=== PATIENT | female | born 1945 | race Caucasian/White ===

== ENCOUNTER → 2023-09-21 11:29 | Outpatient (REF) | payer MEDICARE, OTHER, SELFPAY ==
[2023-09-21 11:37] LABS: % Basophils 0.4 % (0-2); % Immature Granulocytes 0.9 % (0-0.5); % Lymphocytes 6.8 % (20.5-51.1); % Monocytes 12.5 % (1.7-9.3); % Neutrophils 78.4 % (42.2-75.2); Absolute Eosinophils 0.1 10^3/uL (0-0.7); Absolute Immature Granulocytes 0.1 10^3/uL (0-0.05); Absolute Lymphocytes 0.8 10^3/uL (1.2-3.4); Absolute Monocytes 1.4 10^3/uL (0.1-0.6); Absolute Neutrophils 8.9 10^3/uL (1.4-6.5); Mean Corp Hgb Conc. 34.8 g/dL (33.0-37.0); Mean Corpuscular Hgb 34.8 pg (27.0-31.0); Mean Platelet Volume 9.3 fL (7.4-10.4); Nucleated Red Blood Cells % 0 %; Platelet Count 113 10^3/uL (130-400); Red Cell Dist. Width 15.7 % (11.5-14.5); White Blood Cell Count 11.3 10^3/uL (4.8-10.8)
[2023-09-21 11:48] LABS: ALT (SGPT) 24 U/L (0-35); AST (SGOT) 30 U/L (14-36); Albumin 3.7 g/dl (3.5-5.0); Alkaline Phosphatase 169 U/L (38-126); Blood Urea Nitrogen 17 mg/dl (7-17); Calcium 8.6 mg/dl (8.4-10.2); Carbon Dioxide 25 mmol/L (22-30); Chloride 107 mmol/L (98-107); Glucose 104 mg/dl (70-99); Potassium 4.5 mmol/L (3.5-5.1); Sodium 136 mmol/L (135-145); Total Bilirubin 0.7 mg/dl (0.2-1.3); eGFR > 60.00
[2023-09-21 18:33] LABS: CA 125 52.4 U/mL (0-35)
== END ==
LOC: OIDL 11:29
PROVIDERS: ATTENDING PHYSICIAN Nurse Practitioner Adult Health
DX: C48.2 Malignant neoplasm of peritoneum, unspecified (principal)
CPT/HCPCS: 80053; 85025; 86304

== ENCOUNTER → 2023-09-28 15:21 | Outpatient (REF) | payer MEDICARE, OTHER, SELFPAY ==
[2023-09-28 11:32] LABS: ALT (SGPT) 19 U/L (0-35); AST (SGOT) 25 U/L (14-36); Albumin 3.9 g/dl (3.5-5.0); Alkaline Phosphatase 144 U/L (38-126); Blood Urea Nitrogen 19 mg/dl (7-17); Calcium 8.7 mg/dl (8.4-10.2); Carbon Dioxide 22 mmol/L (22-30); Chloride 109 mmol/L (98-107); Glucose 144 mg/dl (70-99); Potassium 4.9 mmol/L (3.5-5.1); Sodium 135 mmol/L (135-145); Total Bilirubin 0.8 mg/dl (0.2-1.3); Total Protein 6.3 g/dl (6.3-8.2); eGFR > 60.00
[2023-09-28 11:35] LABS: % Basophils 0.3 % (0-2); % Eosinophils 0.6 % (0-6); % Immature Granulocytes 0.4 % (0-0.5); % Lymphocytes 17.7 % (20.5-51.1); % Monocytes 10.9 % (1.7-9.3); % Neutrophils 70.1 % (42.2-75.2); Absolute Lymphocytes 1.2 10^3/uL (1.2-3.4); Absolute Monocytes 0.7 10^3/uL (0.1-0.6); Absolute Neutrophils 4.7 10^3/uL (1.4-6.5); Hematocrit 22.5 % (37.0-47.0); Hemoglobin 8.1 g/dL (12.0-16.0); Mean Corpuscular Hgb 35.7 pg (27.0-31.0); Mean Corpuscular Volume 99.1 fL (81.0-99.0); Mean Platelet Volume 9.4 fL (7.4-10.4); Nucleated Red Blood Cells % 0 %; Platelet Count 140 10^3/uL (130-400); Red Blood Cell Count 2.27 10^6/uL (4.20-5.40); Red Cell Dist. Width 15.5 % (11.5-14.5); White Blood Cell Count 6.7 10^3/uL (4.8-10.8)
== END ==
LOC: OIDL 15:21
PROVIDERS: ATTENDING PHYSICIAN Internal Medicine Hematology & Oncology
DX: C48.2 Malignant neoplasm of peritoneum, unspecified (principal)
CPT/HCPCS: 80053; 85025

== ENCOUNTER → 2023-10-05 14:17 | Outpatient (REF) | payer MEDICARE, OTHER, SELFPAY ==
[2023-10-05 13:25] LABS: % Eosinophils 0.1 % (0-6); % Immature Granulocytes 4.6 % (0-0.5); % Lymphocytes 5.6 % (20.5-51.1); % Monocytes 7.5 % (1.7-9.3); % Neutrophils 82.2 % (42.2-75.2); Absolute Immature Granulocytes 1.1 10^3/uL (0-0.05); Absolute Lymphocytes 1.4 10^3/uL (1.2-3.4); Absolute Monocytes 1.8 10^3/uL (0.1-0.6); Hematocrit 21.5 % (37.0-47.0); Hemoglobin 7.4 g/dL (12.0-16.0); Mean Corp Hgb Conc. 34.4 g/dL (33.0-37.0); Mean Corpuscular Hgb 35.2 pg (27.0-31.0); Mean Corpuscular Volume 102.4 fL (81.0-99.0); Nucleated Red Blood Cells % 0 %; Red Cell Dist. Width 15.5 % (11.5-14.5); White Blood Cell Count 24.3 10^3/uL (4.8-10.8)
[2023-10-05 13:41] LABS: ALT (SGPT) 16 U/L (0-35); AST (SGOT) 27 U/L (14-36); Albumin 3.8 g/dl (3.5-5.0); Alkaline Phosphatase 240 U/L (38-126); Blood Urea Nitrogen 24 mg/dl (7-17); Calcium 8.5 mg/dl (8.4-10.2); Carbon Dioxide 21 mmol/L (22-30); Chloride 112 mmol/L (98-107); Glucose 83 mg/dl (70-99); Sodium 138 mmol/L (135-145); Total Bilirubin 0.7 mg/dl (0.2-1.3); Total Protein 6.1 g/dl (6.3-8.2); eGFR > 60.00
[2023-10-05 14:27] LABS: Mean Platelet Volume 10.2 fL (7.4-10.4); Platelet Count 78 10^3/uL (130-400)
[2023-10-05 14:41] LABS: Protein/creatinine Ratio 1.2; Urine Protein 81 mg/dl
== END ==
LOC: OIDL 14:17
PROVIDERS: ATTENDING PHYSICIAN Internal Medicine Hematology & Oncology
DX: C48.2 Malignant neoplasm of peritoneum, unspecified (principal)
CPT/HCPCS: 80053; 82570; 84156; 85025

== ENCOUNTER 2023-10-07 09:48 | Outpatient (RCR) | payer MEDICARE, OTHER, SELFPAY ==
[2023-10-07 10:23] VITALS: BP 142/57
[2023-10-07 10:45] VITALS: BP 129/60
[2023-10-07 12:31] VITALS: BP 139/66
[2023-10-07 12:50] VITALS: BP 152/69
[2023-10-07 15:05] VITALS: BP 138/67
== END 2023-10-08 23:59 | disposition home or self-care (01) ==
LOC: OID 09:48
PROVIDERS: ATTENDING PHYSICIAN Internal Medicine Hematology & Oncology; FAMILY PHYSICIAN Family Medicine
DX: C48.2 Malignant neoplasm of peritoneum, unspecified (principal)
CPT/HCPCS: 36430; 86850; 86900; 86901; 86920; P9016

== ENCOUNTER → 2023-10-19 12:48 | Outpatient (REF) | payer MEDICARE, OTHER, SELFPAY ==
[2023-10-19 13:16] LABS: % Basophils 0.6 % (0-2); % Eosinophils 1.1 % (0-6); % Immature Granulocytes 1.4 % (0-0.5); % Lymphocytes 9.9 % (20.5-51.1); % Monocytes 12.6 % (1.7-9.3); % Neutrophils 74.4 % (42.2-75.2); Absolute Basophils 0.1 10^3/uL (0-0.2); Absolute Eosinophils 0.1 10^3/uL (0-0.7); Absolute Immature Granulocytes 0.2 10^3/uL (0-0.05); Absolute Lymphocytes 1.2 10^3/uL (1.2-3.4); Absolute Monocytes 1.6 10^3/uL (0.1-0.6); Absolute Neutrophils 9.2 10^3/uL (1.4-6.5); Hematocrit 28.3 % (37.0-47.0); Mean Corp Hgb Conc. 35.3 g/dL (33.0-37.0); Mean Corpuscular Hgb 33.2 pg (27.0-31.0); Mean Platelet Volume 8.9 fL (7.4-10.4); Nucleated Red Blood Cells % 0 %; Platelet Count 91 10^3/uL (130-400); Red Blood Cell Count 3.01 10^6/uL (4.20-5.40); White Blood Cell Count 12.4 10^3/uL (4.8-10.8)
[2023-10-19 13:24] LABS: ALT (SGPT) 24 U/L (0-35); AST (SGOT) 29 U/L (14-36); Alkaline Phosphatase 179 U/L (38-126); Blood Urea Nitrogen 22 mg/dl (7-17); Calcium 8.9 mg/dl (8.4-10.2); Carbon Dioxide 24 mmol/L (22-30); Chloride 111 mmol/L (98-107); Glucose 90 mg/dl (70-99); Potassium 4.7 mmol/L (3.5-5.1); Sodium 139 mmol/L (135-145); Total Bilirubin 0.8 mg/dl (0.2-1.3); Total Protein 6.4 g/dl (6.3-8.2); eGFR > 60.00
== END ==
LOC: OIDL 12:48
PROVIDERS: ATTENDING PHYSICIAN Internal Medicine Hematology & Oncology
DX: C48.2 Malignant neoplasm of peritoneum, unspecified (principal)
CPT/HCPCS: 80053; 85025

== ENCOUNTER → 2023-10-20 14:15 | Outpatient (REF) | payer MEDICARE, OTHER, SELFPAY ==
[2023-10-20 16:08] LABS: Protein/creatinine Ratio 2.4; Urine Protein 239 mg/dl
== END ==
LOC: OIDL 14:15
PROVIDERS: ATTENDING PHYSICIAN Internal Medicine Hematology & Oncology
DX: C48.2 Malignant neoplasm of peritoneum, unspecified (principal)
CPT/HCPCS: 82570; 84156

== ENCOUNTER → 2023-10-30 12:41 | Outpatient (REF) | payer MEDICARE, OTHER, SELFPAY | LOC: RAD 12:41 | PROVIDERS: ATTENDING PHYSICIAN Internal Medicine Hematology & Oncology; FAMILY PHYSICIAN Family Medicine | DX: C48.2 Malignant neoplasm of peritoneum, unspecified (principal) | CPT/HCPCS: 71260; 74177; Q9967 ==

== ENCOUNTER → 2023-11-13 09:08 | Outpatient (REF) | payer MEDICARE, OTHER, SELFPAY | LOC: RCS 09:08 | PROVIDERS: ATTENDING PHYSICIAN Nurse Practitioner Adult Health; FAMILY PHYSICIAN Family Medicine | DX: C48.2 Malignant neoplasm of peritoneum, unspecified (principal) | CPT/HCPCS: 93306 ==

== ENCOUNTER → 2023-11-16 09:22 | Outpatient (REF) | payer MEDICARE, OTHER, SELFPAY ==
[2023-11-16 09:39] LABS: % Basophils 0.6 % (0-2); % Eosinophils 1.9 % (0-6); % Immature Granulocytes 0.4 % (0-0.5); % Monocytes 8.5 % (1.7-9.3); % Neutrophils 73.6 % (42.2-75.2); Absolute Eosinophils 0.1 10^3/uL (0-0.7); Absolute Lymphocytes 0.8 10^3/uL (1.2-3.4); Absolute Monocytes 0.4 10^3/uL (0.1-0.6); Absolute Neutrophils 3.8 10^3/uL (1.4-6.5); Hematocrit 23.2 % (37.0-47.0); Hemoglobin 7.9 g/dL (12.0-16.0); Mean Corp Hgb Conc. 34.1 g/dL (33.0-37.0); Mean Corpuscular Hgb 33.8 pg (27.0-31.0); Mean Corpuscular Volume 99.1 fL (81.0-99.0); Mean Platelet Volume 9.7 fL (7.4-10.4); Nucleated Red Blood Cells % 0 %; Platelet Count 117 10^3/uL (130-400); Red Blood Cell Count 2.34 10^6/uL (4.20-5.40); Red Cell Dist. Width 15.9 % (11.5-14.5); White Blood Cell Count 5.2 10^3/uL (4.8-10.8)
[2023-11-16 09:56] LABS: ALT (SGPT) 27 U/L (0-35); AST (SGOT) 31 U/L (14-36); Albumin 3.8 g/dl (3.5-5.0); Alkaline Phosphatase 112 U/L (38-126); Blood Urea Nitrogen 27 mg/dl (7-17); Calcium 8.7 mg/dl (8.4-10.2); Carbon Dioxide 19 mmol/L (22-30); Chloride 113 mmol/L (98-107); Glucose 124 mg/dl (70-99); Potassium 5.1 mmol/L (3.5-5.1); Sodium 137 mmol/L (135-145); Total Bilirubin 0.7 mg/dl (0.2-1.3); Total Protein 6.1 g/dl (6.3-8.2); eGFR 42.35
[2023-11-16 18:44] LABS: CA 125 71.4 U/mL (0-35)
== END ==
LOC: OIDL 09:22
PROVIDERS: ATTENDING PHYSICIAN Internal Medicine Hematology & Oncology
DX: C48.2 Malignant neoplasm of peritoneum, unspecified (principal)
CPT/HCPCS: 80053; 85025; 86304

== ENCOUNTER 2023-11-20 07:15 | Inpatient (IN) | payer MEDICARE, OTHER, SELFPAY ==
[2023-11-20] VITALS (13 sets, daily range): BP systolic 135–155; BP diastolic 56–70; BMI 20.9
--- NOTE | 2023-11-20 09:44 | ITS.CL.PN ---
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
Procedure
Procedure Note:
PERICARDIOCENTESIS REPORT
Date of Procedure: 11/20/2023
Referring: Adrian Blevins MD, PhD
Indication: History of cancer with moderate to large pericardial effusion and exertional dyspnea
PROCEDURE SUMMARY: Successful pericardiocentesis with removal of 450 mL of clear yellow fluid
DESCRIPTION OF PROCEDURE: Using a subxiphoid approach, the pericardial space was entered on the first attempt with a micropuncture needle. A 6 [place]ic sheath was placed in the pericardial space. A pigtail catheter was advanced into the pericardial
space and agitated saline injected to prove proper position of the catheter. Initial intrapericardial pressure was measured at 17 mmHg. A total of 450 mL of clear yellow fluid was removed from the pericardial space. Fluid was sent for cell count,
culture, and the other usual suspects with the bulk of the fluid sent for cytology. A drain was left in place to suction. Final echocardiogram demonstrated trivial residual effusion. The final intrapericardial pressure remained elevated at 10 mmHg
Radiation (mGy): 0.58
DAP (cm2.Gy): 0.07
Fluoroscopy time: 0.1 minutes
CONCLUSIONS: Successful pericardiocentesis as above. We will leave the drain in place for the next 24-72 hours depending upon the drainage. Fluid was sent for analysis. We will treat with colchicine 0.6 mg twice daily if tolerated for 3 months
and a tapering course of ibuprofen (600 twice daily x 3 days, 400 twice daily x 3 days, 200 twice daily x 3 days, 200 daily x 3 days). Continue PPI while on ibuprofen. If cytology is positive would stop the anti-inlammatory regimen. Would repeat
ECHO in 2-4 wks
Copy to: Adrian Blevins MD, PhD, María Elena Mark DO, Ron Rich DO
Alexi Cadet MD, [facility], [facility]
[2023-11-20 10:08] LABS: Body Fluid Glucose 111 mg/dl; Body Fluid LDH 212 U/L
[2023-11-20] MEDS: COLCHICINE 0.599999999999999978 MG PO ×2 (10:19→20:22)
[2023-11-20] MEDS: MOTRIN 600 MG PO ×2 (10:19→17:29)
--- NOTE | 2023-11-20 10:21 | PTCARENOTE ---
Patient verbalizes c/o pain 5/10-left chest wall, radiating to left scapula and down left arm. Linda, HAND MITER OPERATOR aware via TT. Orders placed for a stat dose of ibuprofen and colchicine. Given to patient as ordered.
--- NOTE | 2023-11-20 11:49 | CM ---
spoke to pt in room, she is prev indep, lives alone in a 1 story home with 2 steps to enter. she denies dme's. we discussed vn services and she is agreeable to nv. referral faxed. plan is for dc to home when medically stable.
[2023-11-20 12:18] LABS: Body Fluid WBC 363 /CUMM
[2023-11-20 12:19] LABS: Body Fluid Hematocrit < 1.0 %
[2023-11-20 12:21] LABS: Body Fluid Granulocytes 10 %; Body Fluid Lymphocytes 9 %; Body Fluid Macrophages 56 %
[2023-11-20 12:22] LABS: Body Fluid Mesothelials 25 %
[2023-11-20 12:35] LABS: Body Fluid Second Tech EM
[2023-11-20] MEDS: LOVENOX 30 MG SC (17:29)
--- NOTE | 2023-11-20 19:28 | PTCARENOTE ---
Pt received from recovery area post pericardiocentesis. Pericardial drain in place, 150mls serosanguineous fluid in bulb. Sub xiphoid dressing dry and intact. Pt c/o pain in her left arm and across her upper abdominal area, improved after ibuprofen
and position change. Pt OOB with assistance, walking in halls @50 feet. Telemetry shows sinus rhythm .
[2023-11-20] MEDS: COREG 12.5 MG PO (20:22)
[2023-11-20] MEDS: SINGULAIR 10 MG PO (20:22)
[2023-11-20] MEDS: LIPITOR 20 MG PO (20:22)
[2023-11-20] MEDS: TYLENOL 650 MG PO (20:22)
--- NOTE | 2023-11-20 23:56 | PTCARENOTE ---
Pt sub xiphoid drain and dressing CDI- Pain described as a 3-5/10 from her L neck down her arm- states this has been present since after the drain placement- Pain medications provided as scheduled and PRN medications provided. Warm towel applied to
L neck and pt seated more upright- reports relief and has been able to sleep. VSS. SR on the monitor.
[2023-11-21 03:18] VITALS: BP 133/63
[2023-11-21] MEDS: TYLENOL 650 MG PO (03:36)
[2023-11-21 03:46] LABS: Hematocrit 21.6 % (37.0-47.0); Hemoglobin 7.6 g/dL (12.0-16.0); Mean Corp Hgb Conc. 35.2 g/dL (33.0-37.0); Mean Corpuscular Hgb 33.5 pg (27.0-31.0); Mean Corpuscular Volume 95.2 fL (81.0-99.0); Mean Platelet Volume 9.2 fL (7.4-10.4); Platelet Count 96 10^3/uL (130-400); Red Blood Cell Count 2.27 10^6/uL (4.20-5.40); Red Cell Dist. Width 15.1 % (11.5-14.5); White Blood Cell Count 5.4 10^3/uL (4.8-10.8)
[2023-11-21 05:00] LABS: Blood Urea Nitrogen 27 mg/dl (7-17); Calcium 8.5 mg/dl (8.4-10.2); Carbon Dioxide 21 mmol/L (22-30); Chloride 113 mmol/L (98-107); Estimated Creatinine Clearance 28 ml/min; Glucose 100 mg/dl (70-99); Magnesium 2.3 mg/dl (1.6-2.3); Potassium 4.8 mmol/L (3.5-5.1); Sodium 138 mmol/L (135-145); eGFR 42.35
[2023-11-21 07:43] VITALS: BP 145/66
[2023-11-21] MEDS: PROTONIX 20 MG PO (09:18)
[2023-11-21] MEDS: DIOVAN 160 MG PO (09:18)
[2023-11-21] MEDS: COREG 12.5 MG PO ×2 (09:19→20:18)
[2023-11-21] MEDS: COLCHICINE 0.599999999999999978 MG PO ×2 (09:19→20:17)
[2023-11-21] MEDS: MOTRIN 600 MG PO ×2 (09:19→20:17)
--- NOTE | 2023-11-21 09:51 | W.PN.CD ---
Today's Communication / Plan
-
- leave drain in
- monitor Hb and creatinine
Impression / Plan
-
Impression: 77F with PMH of recurrent ovarian cancer s/p carboplatin/doxorubicin with bevacizumab (anti-VEFG), prior colon mets s/p ostomy 2022, now with liver mets, HTN, hyperlipidemia presents for elective/urgent pericardiocentesis.
Plan
Symptomatic pericardial effusion
- about 160 ml over past 24 hours -> will leave in an evaluate in AM
- colchicine and NSAID
- studies pending
- we discussed pericardial effusions, pericardiocentesis, and pericardial windows.
Recurrent ovarian cancer - has appt with Dr. Rich on Thursday
Creatinine 1.3
- monitor with NSAID use
- may need to change valsartan
Anemia - stable from last week
Prior colon mets s/p ostomy 2022
HTN
Subjective: mild back and shoulder pain, no dyspnea
Pericardiocentesis Nov 12: Initial intrapericardial pressure was measured at 17 mmHg. A total of 450 mL of clear yellow fluid was removed from the pericardial space. Fluid was sent for cell count, culture, and the other usual suspects with the
bulk of the fluid sent for cytology. A drain was left in place to suction. Final echocardiogram demonstrated trivial residual effusion. The final intrapericardial pressure remained elevated at 10 mmHg
Laboratory Data
11/16/23 11/21/23
08:30 03:24
Hgb 7.9 L 7.6 L
Creatinine 1.3 H 1.3 H
Generic Name Dose Route Start Last Admin
Trade Name Freq PRN Reason Stop Dose Admin
Valsartan 160 mg 11/21/23 08:00 11/21/23 09:18
Valsartan 80 Mg Tablet PO 12/19/23 07:59 160 mg
DAILY JORDAN
Atorvastatin Calcium 20 mg 11/20/23 22:00 11/20/23 20:22
Atorvastatin (Lipitor) 20 Mg Tablet PO 12/18/23 21:59 20 mg
HS JORDAN
Colchicine 0.6 mg 11/20/23 20:00 11/21/23 09:19
Colchicine 0.6 Mg Tablet PO 12/18/23 19:59 0.6 mg
BID JORDAN
Ibuprofen 600 mg 11/20/23 20:00 11/21/23 09:19
Ibuprofen 600 Mg Tablet PO 11/23/23 19:59 600 mg
BID JORDAN
Physical Exam
Vital Signs/Labs
Vital Signs
Temp Pulse Resp BP Pulse Ox
36.6 C 67 14 145/66 96
11/21/23 07:43 11/21/23 09:18 11/21/23 07:43 11/21/23 09:18 11/21/23 07:43
11/20/23 11/21/23 11/22/23
06:59 06:59 06:59
Actual Weight 112 lb 3.445 oz
11/21/23 03:24
11/21/23 03:24
Magnesium 2.3 mg/dl (1.6-2.3) 11/21/23 03:24
Physical Exam
Constitutional: No acute distress
EENT: Anicteric
Cardiovascular: Rhythm & rate is regular, Pedal edema is absent, Systolic murmur absent and Diastolic murmur absent
Respiratory: Respiratory effort normal
GI: Soft, Distention absent, Non tender and Normal bowel sounds
Neuro/Psych: Alert
Data Reviewed
-
Date of Service: November 21, 2023
[2023-11-21 11:11] VITALS: BP 146/51
[2023-11-21 16:31] VITALS: BP 147/62
[2023-11-21] MEDS: LOVENOX 30 MG SC (17:52)
[2023-11-21 19:39] VITALS: BP 152/65
[2023-11-21 22:35] VITALS: BP 115/52
[2023-11-21] MEDS: SINGULAIR 10 MG PO (22:42)
[2023-11-21] MEDS: LIPITOR 20 MG PO (22:42)
--- NOTE | 2023-11-22 02:50 | PTCARENOTE ---
Pt rec'd at change of shift upset about her ostomy leaking. Cleaned, redressed not changed but enforced around edges. Pt denies discomfort at pericardial drain site. Sinus on telemetry.
[2023-11-22 03:09] VITALS: BP 143/57
[2023-11-22] MEDS: TYLENOL 650 MG PO (03:11)
[2023-11-22 03:30] LABS: Hematocrit 21.3 % (37.0-47.0); Hemoglobin 7.6 g/dL (12.0-16.0); Mean Corp Hgb Conc. 35.7 g/dL (33.0-37.0); Mean Corpuscular Hgb 33.6 pg (27.0-31.0); Mean Corpuscular Volume 94.2 fL (81.0-99.0); Mean Platelet Volume 9.4 fL (7.4-10.4); Platelet Count 101 10^3/uL (130-400); Red Blood Cell Count 2.26 10^6/uL (4.20-5.40); Red Cell Dist. Width 15.2 % (11.5-14.5); White Blood Cell Count 5.4 10^3/uL (4.8-10.8)
[2023-11-22 03:57] LABS: Blood Urea Nitrogen 28 mg/dl (7-17); Calcium 8.5 mg/dl (8.4-10.2); Carbon Dioxide 18 mmol/L (22-30); Chloride 113 mmol/L (98-107); Estimated Creatinine Clearance 30 ml/min; Glucose 115 mg/dl (70-99); Potassium 4.5 mmol/L (3.5-5.1); Sodium 136 mmol/L (135-145); eGFR 46.62
[2023-11-22 07:35] VITALS: BP 149/60
--- NOTE | 2023-11-22 08:11 | W.PN.CD ---
Today's Communication / Plan
-
- drainage trailed of and Dr. Cadet pulled drain
- colchicine (lower to once daily given GFR) and NSAID
- studies pending
- D/c home
- Echo in 2 weeks
- BMP in one week
Impression / Plan
-
Impression: 77F with PMH of recurrent ovarian cancer s/p carboplatin/doxorubicin with bevacizumab (anti-VEFG), prior colon mets s/p ostomy 2022, now with liver mets, HTN, hyperlipidemia presents for elective/urgent pericardiocentesis.
Plan
Symptomatic pericardial effusion
- drainage trailed of and Dr. Cadet pulled drain
- colchicine (lower to once daily given GFR) and NSAID
- studies pending
Recurrent ovarian cancer - has appt with Dr. Rich on Thursday
Creatinine 1.2
- monitor with NSAID use
- may need to change valsartan
Anemia - stable from last week
Prior colon mets s/p ostomy 2022
HTN
Dispo
- D/c home
- Echo in 2 weeks
- BMP in one week
Subjective: No CP or palps
Pericardiocentesis Apr 12: Initial intrapericardial pressure was measured at 17 mmHg. A total of 450 mL of clear yellow fluid was removed from the pericardial space. Fluid was sent for cell count, culture, and the other usual suspects with the
bulk of the fluid sent for cytology. A drain was left in place to suction. Final echocardiogram demonstrated trivial residual effusion. The final intrapericardial pressure remained elevated at 10 mmHg
Laboratory Data
11/16/23 11/21/23
08:30 03:24
Hgb 7.9 L 7.6 L
Creatinine 1.3 H 1.3 H
Generic Name Dose Route Start Last Admin
Trade Name Freq PRN Reason Stop Dose Admin
Valsartan 160 mg 11/21/23 08:00 11/21/23 09:18
Valsartan 80 Mg Tablet PO 12/19/23 07:59 160 mg
DAILY JORDAN
Atorvastatin Calcium 20 mg 11/20/23 22:00 11/20/23 20:22
Atorvastatin (Lipitor) 20 Mg Tablet PO 12/18/23 21:59 20 mg
HS JORDAN
Colchicine 0.6 mg 11/20/23 20:00 11/21/23 09:19
Colchicine 0.6 Mg Tablet PO 12/18/23 19:59 0.6 mg
BID JORDAN
Ibuprofen 600 mg 11/20/23 20:00 11/21/23 09:19
Ibuprofen 600 Mg Tablet PO 11/23/23 19:59 600 mg
BID JORDAN
Physical Exam
Vital Signs/Labs
Vital Signs
Temp Pulse Resp BP Pulse Ox
36.5 C 52 20 143/57 98
11/22/23 07:31 11/22/23 05:00 11/22/23 07:31 11/22/23 03:09 11/22/23 07:31
11/21/23 11/22/23 11/23/23
06:59 06:59 06:59
Actual Weight 112 lb 3.445 oz
11/22/23 03:19
11/22/23 03:19
Magnesium 2.3 mg/dl (1.6-2.3) 11/21/23 03:24
Physical Exam
Constitutional: No acute distress
EENT: Anicteric and Moist mucous membranes
Cardiovascular: Rhythm & rate is regular, Systolic murmur absent and Diastolic murmur absent
Respiratory: Respiratory effort normal
GI: Soft, Distention absent, Non tender and Normal bowel sounds
Neuro/Psych: Alert and Oriented
Data Reviewed
-
Date of Service: November 22, 2023
[2023-11-22] MEDS: DIOVAN 160 MG PO (08:28)
[2023-11-22] MEDS: PROTONIX 20 MG PO (08:28)
[2023-11-22] MEDS: COREG 12.5 MG PO (08:29)
[2023-11-22] MEDS: MOTRIN 600 MG PO (08:29)
[2023-11-22] MEDS: COLCHICINE 0.599999999999999978 MG PO (08:29)
--- NOTE | 2023-11-22 08:30 | W.DS.TRANS ---
DC Summary - Cath Lab Nurse
-
Discharge Instructions:
Discharge Diagnosis/Procedures Pericardial effusion post pericardiocentesis
Diet Low Cholesterol
Activity No restrictions
Driving Restrictions As prior to admission
Bathing Restrictions None
Blood Work BMP one week (office will arrange)
Instructions:
Stand-Alone Forms: DC Instructions- Cath/EP Lab
Changes to Home Medications: Yes
Discharge Medications:
DC Medications w/original date entered in [employer]
montelukast 10 mg tablet 10 mg PO HS Allergies 05/20/17
simvastatin 40 mg tablet 40 mg PO HS High Cholesterol 05/20/17
famotidine 20 mg tablet (Pepcid) 20 mg PO DAILY Gastrointestinal Issue 03/13/23
valsartan 80 mg capsule 160 mg PO DAILY Heart Disease/Condition 10/07/23
carvedilol 12.5 mg tablet 12.5 mg PO BID Heart Disease/Condition 11/20/23
loratadine 10 mg tablet 10 mg PO DAILY Allergies 11/20/23
pantoprazole 20 mg tablet,delayed release 20 mg PO DAILY Gastrointestinal Issue 11/20/23
colchicine 0.6 mg tablet 0.6 mg PO DAILY #30 tabs 11/22/23
ibuprofen 400 mg tablet 400 mg PO BID 14 days #28 tabs 11/22/23
Home Medication Changes
colchicine 0.6 mg tablet 0.6 mg PO DAILY #30 tabs 11/22/23 is NEW
ibuprofen 400 mg tablet 400 mg PO BID 14 days #28 tabs 11/22/23 is NEW
Pending Results: No
[2023-11-22 09:35] VITALS: BP 76/39
--- NOTE | 2023-11-22 09:37 | PTCARENOTE ---
Pt getting ready for d/c and felt very weak. BP 76/39, HR 54. Pt assisted back to bed to rest. Will monitor.
[2023-11-22 09:45] VITALS: BP 116/49
--- NOTE | 2023-11-22 10:53 | PTCARENOTE ---
BP 116/49, HR 62. Pt feeling much better. Pt clarified her coreg dose as 6.25 mg BID. Med rec amended. Pt d/c'd via wheelchair.
== END 2023-11-22 13:06 | disposition home health service (06) | DRG 315 ==
LOC: IVU 07:15
PROVIDERS: Internal Medicine; Nurse Practitioner Adult Health; ADMITTING PHYSICIAN Internal Medicine Cardiovascular Disease; ATTENDING PHYSICIAN Internal Medicine Cardiovascular Disease; FAMILY PHYSICIAN Family Medicine
PROC: 0W9D3ZZ Drainage of Pericardial Cavity, Percutaneous Approach (ICD-10-PCS; 2023-11-20)
DX: I31.39 Other pericardial effusion (noninflammatory) (principal); C56.9 Malignant neoplasm of unspecified ovary
CPT/HCPCS: 88305; 93308; 33016; 80048; 82945; 83615; 83735; 84157; 85014; 85027; 87015; 87070; 87102; 87116; 87205; 87206; 88112; 88341; 88342; 89051

== ENCOUNTER → 2023-12-03 14:13 | Outpatient (REF) | payer MEDICARE, OTHER, SELFPAY | LOC: RCS 14:13 | PROVIDERS: ATTENDING PHYSICIAN Internal Medicine Hematology & Oncology; FAMILY PHYSICIAN Family Medicine; REFERRING PHYSICIAN Internal Medicine Cardiovascular Disease | DX: I31.39 Other pericardial effusion (noninflammatory) (principal); C48.2 Malignant neoplasm of peritoneum, unspecified | CPT/HCPCS: 93308; 93321; 93325 ==

== ENCOUNTER → 2023-12-04 14:07 | Outpatient (REF) | payer MEDICARE, OTHER, SELFPAY ==
[2023-12-04 10:15] LABS: % Basophils 0.5 % (0-2); % Eosinophils 2.4 % (0-6); % Immature Granulocytes 0.3 % (0-0.5); % Lymphocytes 18.3 % (20.5-51.1); % Monocytes 10.6 % (1.7-9.3); % Neutrophils 67.9 % (42.2-75.2); Absolute Eosinophils 0.1 10^3/uL (0-0.7); Absolute Lymphocytes 0.7 10^3/uL (1.2-3.4); Absolute Monocytes 0.4 10^3/uL (0.1-0.6); Absolute Neutrophils 2.6 10^3/uL (1.4-6.5); Hematocrit 25.9 % (37.0-47.0); Hemoglobin 8.8 g/dL (12.0-16.0); Mean Corpuscular Hgb 33.6 pg (27.0-31.0); Mean Corpuscular Volume 98.9 fL (81.0-99.0); Mean Platelet Volume 10.3 fL (7.4-10.4); Nucleated Red Blood Cells % 0 %; Platelet Count 214 10^3/uL (130-400); Red Blood Cell Count 2.62 10^6/uL (4.20-5.40); White Blood Cell Count 3.8 10^3/uL (4.8-10.8)
[2023-12-04 10:39] LABS: ALT (SGPT) 15 U/L (0-35); AST (SGOT) 22 U/L (14-36); Albumin 3.7 g/dl (3.5-5.0); Alkaline Phosphatase 85 U/L (38-126); Blood Urea Nitrogen 33 mg/dl (7-17); Carbon Dioxide 20 mmol/L (22-30); Chloride 112 mmol/L (98-107); Glucose 131 mg/dl (70-99); Potassium 5.4 mmol/L (3.5-5.1); Sodium 137 mmol/L (135-145); Total Bilirubin 0.6 mg/dl (0.2-1.3); Total Protein 6.1 g/dl (6.3-8.2); eGFR 35.67
[2023-12-04 16:10] LABS: CA 125 95.7 U/mL (0-35)
== END ==
LOC: OIDL 14:07
PROVIDERS: ATTENDING PHYSICIAN Internal Medicine Hematology & Oncology
DX: C48.2 Malignant neoplasm of peritoneum, unspecified (principal)
CPT/HCPCS: 80053; 85025; 86304

== ENCOUNTER → 2023-12-11 10:44 | Outpatient (REF) | payer MEDICARE, OTHER, SELFPAY | LOC: RCS 10:44 | PROVIDERS: ATTENDING PHYSICIAN Internal Medicine Hematology & Oncology; FAMILY PHYSICIAN Family Medicine; REFERRING PHYSICIAN Nurse Practitioner Gerontology | DX: Z98.890 Other specified postprocedural states (principal); C48.2 Malignant neoplasm of peritoneum, unspecified | CPT/HCPCS: 93308; 93321; 93325 ==

== ENCOUNTER → 2023-12-14 11:34 | Outpatient (REF) | payer MEDICARE, OTHER, SELFPAY ==
[2023-12-14 13:11] LABS: % Basophils 0.3 % (0-2); % Immature Granulocytes 0.3 % (0-0.5); % Lymphocytes 26.3 % (20.5-51.1); % Monocytes 4.3 % (1.7-9.3); % Neutrophils 64.8 % (42.2-75.2); Absolute Eosinophils 0.1 10^3/uL (0-0.7); Absolute Lymphocytes 0.8 10^3/uL (1.2-3.4); Absolute Monocytes 0.1 10^3/uL (0.1-0.6); Absolute Neutrophils 1.9 10^3/uL (1.4-6.5); Hematocrit 26.2 % (37.0-47.0); Hemoglobin 9.1 g/dL (12.0-16.0); Mean Corp Hgb Conc. 34.7 g/dL (33.0-37.0); Mean Corpuscular Hgb 33.3 pg (27.0-31.0); Mean Platelet Volume 10.5 fL (7.4-10.4); Nucleated Red Blood Cells % 0 %; Platelet Count 160 10^3/uL (130-400); Red Blood Cell Count 2.73 10^6/uL (4.20-5.40); Red Cell Dist. Width 12.6 % (11.5-14.5)
[2023-12-14 14:17] LABS: ALT (SGPT) 13 U/L (0-35); AST (SGOT) 18 U/L (14-36); Albumin 3.5 g/dl (3.5-5.0); Alkaline Phosphatase 76 U/L (38-126); Blood Urea Nitrogen 30 mg/dl (7-17); Carbon Dioxide 21 mmol/L (22-30); Chloride 108 mmol/L (98-107); Glucose 111 mg/dl (70-99); Potassium 5.4 mmol/L (3.5-5.1); Sodium 133 mmol/L (135-145); Total Bilirubin 0.4 mg/dl (0.2-1.3); Total Protein 5.8 g/dl (6.3-8.2); eGFR 42.35
== END ==
LOC: REG 11:34
PROVIDERS: ATTENDING PHYSICIAN Internal Medicine Hematology & Oncology; FAMILY PHYSICIAN Family Medicine
DX: C48.2 Malignant neoplasm of peritoneum, unspecified (principal)
CPT/HCPCS: 36415; 80053; 85025

== ENCOUNTER → 2023-12-21 13:25 | Outpatient (REF) | payer MEDICARE, OTHER, SELFPAY ==
[2023-12-21 14:33] LABS: % Basophils 0.4 % (0-2); % Eosinophils 2.1 % (0-6); % Immature Granulocytes 0.4 % (0-0.5); % Lymphocytes 23.8 % (20.5-51.1); % Monocytes 7.8 % (1.7-9.3); % Neutrophils 65.5 % (42.2-75.2); Absolute Eosinophils 0.1 10^3/uL (0-0.7); Absolute Lymphocytes 0.7 10^3/uL (1.2-3.4); Absolute Monocytes 0.2 10^3/uL (0.1-0.6); Absolute Neutrophils 1.9 10^3/uL (1.4-6.5); Hematocrit 25.7 % (37.0-47.0); Hemoglobin 8.8 g/dL (12.0-16.0); Mean Corp Hgb Conc. 34.2 g/dL (33.0-37.0); Mean Corpuscular Hgb 33.5 pg (27.0-31.0); Mean Corpuscular Volume 97.7 fL (81.0-99.0); Mean Platelet Volume 10.5 fL (7.4-10.4); Nucleated Red Blood Cells % 0 %; Platelet Count 183 10^3/uL (130-400); Red Blood Cell Count 2.63 10^6/uL (4.20-5.40); Red Cell Dist. Width 12.5 % (11.5-14.5); White Blood Cell Count 2.8 10^3/uL (4.8-10.8)
[2023-12-21 14:56] LABS: ALT (SGPT) 11 U/L (0-35); AST (SGOT) 17 U/L (14-36); Albumin 3.4 g/dl (3.5-5.0); Alkaline Phosphatase 75 U/L (38-126); Blood Urea Nitrogen 36 mg/dl (7-17); Carbon Dioxide 20 mmol/L (22-30); Chloride 109 mmol/L (98-107); Glucose 116 mg/dl (70-99); Potassium 5.4 mmol/L (3.5-5.1); Sodium 136 mmol/L (135-145); Total Bilirubin 0.3 mg/dl (0.2-1.3); Total Protein 5.9 g/dl (6.3-8.2); eGFR 42.35
== END ==
LOC: REG 13:25
PROVIDERS: ATTENDING PHYSICIAN Internal Medicine Hematology & Oncology; FAMILY PHYSICIAN Family Medicine
DX: C48.2 Malignant neoplasm of peritoneum, unspecified (principal)
CPT/HCPCS: 36415; 80053; 85025

== ENCOUNTER → 2023-12-22 12:49 | Outpatient (REF) | payer MEDICARE, OTHER, SELFPAY | LOC: RSP 12:49 | PROVIDERS: ATTENDING PHYSICIAN Internal Medicine Hematology & Oncology; FAMILY PHYSICIAN Family Medicine | DX: I31.39 Other pericardial effusion (noninflammatory) (principal); C48.2 Malignant neoplasm of peritoneum, unspecified | CPT/HCPCS: 94727; 94729; 94010 ==

== ENCOUNTER → 2023-12-28 11:57 | Outpatient (REF) | payer MEDICARE, OTHER, SELFPAY ==
[2023-12-28 10:21] LABS: % Eosinophils 3.4 % (0-6); % Lymphocytes 30.3 % (20.5-51.1); % Monocytes 15.9 % (1.7-9.3); % Neutrophils 49.4 % (42.2-75.2); Absolute Eosinophils 0.1 10^3/uL (0-0.7); Absolute Lymphocytes 0.6 10^3/uL (1.2-3.4); Absolute Monocytes 0.3 10^3/uL (0.1-0.6); Hematocrit 26.6 % (37.0-47.0); Hemoglobin 9.1 g/dL (12.0-16.0); Mean Corp Hgb Conc. 34.2 g/dL (33.0-37.0); Mean Corpuscular Hgb 33.3 pg (27.0-31.0); Mean Corpuscular Volume 97.4 fL (81.0-99.0); Mean Platelet Volume 9.9 fL (7.4-10.4); Nucleated Red Blood Cells % 0 %; Platelet Count 222 10^3/uL (130-400); Red Blood Cell Count 2.73 10^6/uL (4.20-5.40); Red Cell Dist. Width 12.4 % (11.5-14.5); White Blood Cell Count 2.1 10^3/uL (4.8-10.8)
[2023-12-28 10:39] LABS: ALT (SGPT) 15 U/L (0-35); AST (SGOT) 19 U/L (14-36); Albumin 3.5 g/dl (3.5-5.0); Alkaline Phosphatase 82 U/L (38-126); Blood Urea Nitrogen 31 mg/dl (7-17); Calcium 9.3 mg/dl (8.4-10.2); Carbon Dioxide 20 mmol/L (22-30); Chloride 110 mmol/L (98-107); Glucose 129 mg/dl (70-99); Sodium 138 mmol/L (135-145); Total Bilirubin 0.3 mg/dl (0.2-1.3); eGFR 42.35
[2023-12-28 19:22] LABS: CA 125 63.6 U/mL (0-35)
== END ==
LOC: OIDL 11:57
PROVIDERS: ATTENDING PHYSICIAN Internal Medicine Hematology & Oncology
DX: C48.2 Malignant neoplasm of peritoneum, unspecified (principal)
CPT/HCPCS: 80053; 85025; 86304

== ENCOUNTER → 2024-01-05 12:20 | Outpatient (REF) | payer MEDICARE, OTHER, SELFPAY ==
[2024-01-05 14:13] LABS: Hemoglobin 9.3 g/dL (12.0-16.0); Mean Corp Hgb Conc. 34.4 g/dL (33.0-37.0); Mean Corpuscular Hgb 33.6 pg (27.0-31.0); Mean Corpuscular Volume 97.5 fL (81.0-99.0); Mean Platelet Volume 10.7 fL (7.4-10.4); Nucleated Red Blood Cells % 0 %; Platelet Count 145 10^3/uL (130-400); Red Blood Cell Count 2.77 10^6/uL (4.20-5.40); Red Cell Dist. Width 12.6 % (11.5-14.5); White Blood Cell Count 20.3 10^3/uL (4.8-10.8)
[2024-01-05 14:43] LABS: ALT (SGPT) 14 U/L (0-35); AST (SGOT) 21 U/L (14-36); Albumin 3.6 g/dl (3.5-5.0); Alkaline Phosphatase 192 U/L (38-126); Blood Urea Nitrogen 31 mg/dl (7-17); Calcium 9.2 mg/dl (8.4-10.2); Carbon Dioxide 21 mmol/L (22-30); Chloride 110 mmol/L (98-107); Glucose 78 mg/dl (70-99); Potassium 5.7 mmol/L (3.5-5.1); Total Bilirubin 0.4 mg/dl (0.2-1.3); Total Protein 6.1 g/dl (6.3-8.2); eGFR 46.33
[2024-01-05 15:22] LABS: Sodium 138 mmol/L (135-145)
[2024-01-05 15:23] LABS: Band Neutrophils 12 % (0-3); Lymphocytes 11 % (20-51); Monocytes 10 % (2-9); Normal RBC Morphology Yes; Platelets Checked Yes; Segmented Neutrophils 67 % (42-75); Total Cells Counted 100
== END ==
LOC: REG 12:20
PROVIDERS: ATTENDING PHYSICIAN Internal Medicine Hematology & Oncology; FAMILY PHYSICIAN Family Medicine
DX: C48.2 Malignant neoplasm of peritoneum, unspecified (principal)
CPT/HCPCS: 36415; 80053; 85025

== ENCOUNTER → 2024-01-11 11:30 | Outpatient (REF) | payer MEDICARE, OTHER, SELFPAY ==
[2024-01-11 12:27] LABS: % Basophils 0.1 % (0-2); % Eosinophils 0.3 % (0-6); % Immature Granulocytes 4.3 % (0-0.5); % Lymphocytes 7.2 % (20.5-51.1); % Monocytes 8.3 % (1.7-9.3); % Neutrophils 79.8 % (42.2-75.2); Absolute Eosinophils 0.1 10^3/uL (0-0.7); Absolute Immature Granulocytes 0.9 10^3/uL (0-0.05); Absolute Lymphocytes 1.5 10^3/uL (1.2-3.4); Absolute Monocytes 1.8 10^3/uL (0.1-0.6); Absolute Neutrophils 16.8 10^3/uL (1.4-6.5); Hematocrit 26.3 % (37.0-47.0); Hemoglobin 8.9 g/dL (12.0-16.0); Mean Corp Hgb Conc. 33.8 g/dL (33.0-37.0); Mean Corpuscular Hgb 32.8 pg (27.0-31.0); Mean Platelet Volume 10.4 fL (7.4-10.4); Nucleated Red Blood Cells % 0 %; Platelet Count 245 10^3/uL (130-400); Red Blood Cell Count 2.71 10^6/uL (4.20-5.40); Red Cell Dist. Width 13.2 % (11.5-14.5); White Blood Cell Count 21.1 10^3/uL (4.8-10.8)
[2024-01-11 13:04] LABS: ALT (SGPT) 13 U/L (0-35); AST (SGOT) 21 U/L (14-36); Albumin 3.5 g/dl (3.5-5.0); Alkaline Phosphatase 193 U/L (38-126); Blood Urea Nitrogen 30 mg/dl (7-17); Calcium 9.3 mg/dl (8.4-10.2); Carbon Dioxide 22 mmol/L (22-30); Chloride 107 mmol/L (98-107); Glucose 92 mg/dl (70-99); Potassium 5.1 mmol/L (3.5-5.1); Sodium 136 mmol/L (135-145); Total Bilirubin 0.3 mg/dl (0.2-1.3); Total Protein 5.9 g/dl (6.3-8.2); eGFR 42.09
== END ==
LOC: REG 11:30
PROVIDERS: ATTENDING PHYSICIAN Internal Medicine Hematology & Oncology; FAMILY PHYSICIAN Family Medicine; OTHER PHYSICIAN Internal Medicine
DX: C48.2 Malignant neoplasm of peritoneum, unspecified (principal)
CPT/HCPCS: 36415; 80053; 85025

== ENCOUNTER → 2024-01-14 10:29 | Outpatient (REF) | payer MEDICARE, OTHER, SELFPAY | LOC: RCS 10:29 | PROVIDERS: ATTENDING PHYSICIAN Internal Medicine; FAMILY PHYSICIAN Family Medicine; REFERRING PHYSICIAN Internal Medicine Hematology & Oncology | DX: I31.39 Other pericardial effusion (noninflammatory) (principal); Z01.89 Encounter for other specified special examinations; C78.6 Secondary malignant neoplasm of retroperitoneum and peritoneum; Z79.899 Other long term (current) drug therapy | CPT/HCPCS: 93308; 93321; 93325 ==

== ENCOUNTER → 2024-01-18 09:11 | Outpatient (REF) | payer MEDICARE, OTHER, SELFPAY ==
[2024-01-18 09:31] LABS: % Basophils 0.5 % (0-2); % Eosinophils 0.4 % (0-6); % Immature Granulocytes 1.2 % (0-0.5); % Lymphocytes 6.1 % (20.5-51.1); % Neutrophils 84.8 % (42.2-75.2); Absolute Basophils 0.1 10^3/uL (0-0.2); Absolute Eosinophils 0.1 10^3/uL (0-0.7); Absolute Immature Granulocytes 0.2 10^3/uL (0-0.05); Absolute Monocytes 1.2 10^3/uL (0.1-0.6); Absolute Neutrophils 14.3 10^3/uL (1.4-6.5); Hematocrit 27.4 % (37.0-47.0); Hemoglobin 9.5 g/dL (12.0-16.0); Mean Corp Hgb Conc. 34.7 g/dL (33.0-37.0); Mean Corpuscular Hgb 33.3 pg (27.0-31.0); Mean Corpuscular Volume 96.1 fL (81.0-99.0); Mean Platelet Volume 10.2 fL (7.4-10.4); Nucleated Red Blood Cells % 0 %; Platelet Count 255 10^3/uL (130-400); Red Blood Cell Count 2.85 10^6/uL (4.20-5.40); Red Cell Dist. Width 13.5 % (11.5-14.5); White Blood Cell Count 16.8 10^3/uL (4.8-10.8)
[2024-01-18 09:48] LABS: ALT (SGPT) 17 U/L (0-35); AST (SGOT) 19 U/L (14-36); Albumin 3.6 g/dl (3.5-5.0); Alkaline Phosphatase 168 U/L (38-126); Blood Urea Nitrogen 27 mg/dl (7-17); Calcium 9.2 mg/dl (8.4-10.2); Carbon Dioxide 20 mmol/L (22-30); Chloride 111 mmol/L (98-107); Glucose 174 mg/dl (70-99); Potassium 4.5 mmol/L (3.5-5.1); Sodium 140 mmol/L (135-145); Total Bilirubin 0.3 mg/dl (0.2-1.3); eGFR 51.43
[2024-01-18 21:34] LABS: CA 125 42.7 U/mL (0-35)
== END ==
LOC: OIDL 09:11
PROVIDERS: ATTENDING PHYSICIAN Internal Medicine Hematology & Oncology
DX: C48.2 Malignant neoplasm of peritoneum, unspecified (principal)
CPT/HCPCS: 80053; 85025; 86304

== ENCOUNTER → 2024-02-08 15:39 | Outpatient (REF) | payer MEDICARE, OTHER, SELFPAY ==
[2024-02-08 10:55] LABS: % Basophils 0.4 % (0-2); % Eosinophils 0.6 % (0-6); % Immature Granulocytes 1.6 % (0-0.5); % Lymphocytes 6.1 % (20.5-51.1); % Monocytes 7.5 % (1.7-9.3); % Neutrophils 83.8 % (42.2-75.2); Absolute Basophils 0.1 10^3/uL (0-0.2); Absolute Eosinophils 0.1 10^3/uL (0-0.7); Absolute Immature Granulocytes 0.3 10^3/uL (0-0.05); Absolute Lymphocytes 1.2 10^3/uL (1.2-3.4); Absolute Monocytes 1.5 10^3/uL (0.1-0.6); Hematocrit 29.8 % (37.0-47.0); Hemoglobin 9.8 g/dL (12.0-16.0); Mean Corp Hgb Conc. 32.9 g/dL (33.0-37.0); Mean Corpuscular Hgb 32.8 pg (27.0-31.0); Mean Corpuscular Volume 99.7 fL (81.0-99.0); Mean Platelet Volume 10.1 fL (7.4-10.4); Nucleated Red Blood Cells % 0 %; Platelet Count 248 10^3/uL (130-400); Red Blood Cell Count 2.99 10^6/uL (4.20-5.40); Red Cell Dist. Width 14.3 % (11.5-14.5); White Blood Cell Count 20.3 10^3/uL (4.8-10.8)
[2024-02-08 11:17] LABS: ALT (SGPT) 20 U/L (0-35); AST (SGOT) 22 U/L (14-36); Albumin 3.8 g/dl (3.5-5.0); Alkaline Phosphatase 187 U/L (38-126); Blood Urea Nitrogen 32 mg/dl (7-17); Calcium 9.5 mg/dl (8.4-10.2); Carbon Dioxide 20 mmol/L (22-30); Chloride 111 mmol/L (98-107); Glucose 115 mg/dl (70-99); Potassium 5.1 mmol/L (3.5-5.1); Sodium 139 mmol/L (135-145); Total Bilirubin 0.3 mg/dl (0.2-1.3); Total Protein 6.1 g/dl (6.3-8.2); eGFR 46.33
[2024-02-08 18:55] LABS: CA 125 40.5 U/mL (0-35)
== END ==
LOC: OIDL 15:39
PROVIDERS: ATTENDING PHYSICIAN Internal Medicine Hematology & Oncology
DX: C48.2 Malignant neoplasm of peritoneum, unspecified (principal)
CPT/HCPCS: 80053; 85025; 86304

== ENCOUNTER → 2024-02-29 16:03 | Outpatient (REF) | payer MEDICARE, OTHER, SELFPAY ==
[2024-02-29 14:24] LABS: % Basophils 0.4 % (0-2); % Eosinophils 0.8 % (0-6); % Immature Granulocytes 1.7 % (0-0.5); % Lymphocytes 5.8 % (20.5-51.1); % Monocytes 7.1 % (1.7-9.3); % Neutrophils 84.2 % (42.2-75.2); Absolute Basophils 0.1 10^3/uL (0-0.2); Absolute Eosinophils 0.2 10^3/uL (0-0.7); Absolute Immature Granulocytes 0.4 10^3/uL (0-0.05); Absolute Lymphocytes 1.4 10^3/uL (1.2-3.4); Absolute Monocytes 1.7 10^3/uL (0.1-0.6); Absolute Neutrophils 19.7 10^3/uL (1.4-6.5); Hematocrit 28.8 % (37.0-47.0); Hemoglobin 9.7 g/dL (12.0-16.0); Mean Corp Hgb Conc. 33.7 g/dL (33.0-37.0); Mean Corpuscular Hgb 33.4 pg (27.0-31.0); Mean Corpuscular Volume 99.3 fL (81.0-99.0); Mean Platelet Volume 10.8 fL (7.4-10.4); Nucleated Red Blood Cells % 0 %; Platelet Count 272 10^3/uL (130-400); Red Cell Dist. Width 15.2 % (11.5-14.5); White Blood Cell Count 23.4 10^3/uL (4.8-10.8)
[2024-02-29 14:47] LABS: ALT (SGPT) 15 U/L (0-35); AST (SGOT) 19 U/L (14-36); Albumin 3.9 g/dl (3.5-5.0); Alkaline Phosphatase 206 U/L (38-126); Blood Urea Nitrogen 33 mg/dl (7-17); Calcium 9.2 mg/dl (8.4-10.2); Carbon Dioxide 18 mmol/L (22-30); Chloride 111 mmol/L (98-107); Glucose 83 mg/dl (70-99); Potassium 5.9 mmol/L (3.5-5.1); Sodium 138 mmol/L (135-145); Total Bilirubin 0.3 mg/dl (0.2-1.3); Total Protein 6.2 g/dl (6.3-8.2); eGFR 42.09
== END ==
LOC: OIDL 16:03
PROVIDERS: ATTENDING PHYSICIAN Internal Medicine Hematology & Oncology
DX: C48.2 Malignant neoplasm of peritoneum, unspecified (principal)
CPT/HCPCS: 80053; 85025

== ENCOUNTER → 2024-03-21 11:06 | Outpatient (REF) | payer MEDICARE, OTHER, SELFPAY ==
[2024-03-21 12:37] LABS: % Basophils 0.6 % (0-2); % Eosinophils 0.9 % (0-6); % Immature Granulocytes 2.1 % (0-0.5); % Lymphocytes 5.9 % (20.5-51.1); % Monocytes 7.4 % (1.7-9.3); % Neutrophils 83.1 % (42.2-75.2); Absolute Basophils 0.1 10^3/uL (0-0.2); Absolute Eosinophils 0.2 10^3/uL (0-0.7); Absolute Immature Granulocytes 0.4 10^3/uL (0-0.05); Absolute Lymphocytes 1.1 10^3/uL (1.2-3.4); Absolute Monocytes 1.4 10^3/uL (0.1-0.6); Absolute Neutrophils 15.9 10^3/uL (1.4-6.5); Hematocrit 26.8 % (37.0-47.0); Hemoglobin 8.9 g/dL (12.0-16.0); Mean Corp Hgb Conc. 33.2 g/dL (33.0-37.0); Mean Corpuscular Hgb 32.6 pg (27.0-31.0); Mean Corpuscular Volume 98.2 fL (81.0-99.0); Mean Platelet Volume 10.1 fL (7.4-10.4); Nucleated Red Blood Cells % 0 %; Platelet Count 252 10^3/uL (130-400); Red Blood Cell Count 2.73 10^6/uL (4.20-5.40); Red Cell Dist. Width 15.4 % (11.5-14.5); White Blood Cell Count 19.2 10^3/uL (4.8-10.8)
[2024-03-21 12:41] LABS: ALT (SGPT) 18 U/L (0-35); AST (SGOT) 22 U/L (14-36); Albumin 3.7 g/dl (3.5-5.0); Alkaline Phosphatase 185 U/L (38-126); Blood Urea Nitrogen 36 mg/dl (7-17); Calcium 9.3 mg/dl (8.4-10.2); Carbon Dioxide 21 mmol/L (22-30); Chloride 112 mmol/L (98-107); Glucose 94 mg/dl (70-99); Potassium 5.4 mmol/L (3.5-5.1); Sodium 137 mmol/L (135-145); Total Bilirubin 0.4 mg/dl (0.2-1.3); Total Protein 5.9 g/dl (6.3-8.2); eGFR 42.09
== END ==
LOC: REG 11:06
PROVIDERS: ATTENDING PHYSICIAN Internal Medicine Hematology & Oncology; FAMILY PHYSICIAN Family Medicine
DX: C48.2 Malignant neoplasm of peritoneum, unspecified (principal); C78.80 Secondary malignant neoplasm of unspecified digestive organ
CPT/HCPCS: 36415; 80053; 85025

== ENCOUNTER → 2024-03-22 13:35 | Outpatient (REF) | payer MEDICARE, OTHER, SELFPAY ==
[2024-03-22 13:29] LABS: Iron 88 ug/dl (37-170)
[2024-03-22 13:39] LABS: Percent Saturation 30 % (20-50); Total Iron Binding Capacity 293 ug/dl (265-497)
[2024-03-22 14:00] LABS: CA 125 34.3 U/mL (0-35)
== END ==
LOC: OIDL 13:35
PROVIDERS: ATTENDING PHYSICIAN Internal Medicine Hematology & Oncology
DX: C48.2 Malignant neoplasm of peritoneum, unspecified (principal)
CPT/HCPCS: 82728; 83540; 83550; 86304

== ENCOUNTER → 2024-04-05 08:48 | Outpatient (REF) | payer MEDICARE, OTHER, SELFPAY | LOC: RSP 08:48 | PROVIDERS: ATTENDING PHYSICIAN Internal Medicine Hematology & Oncology; FAMILY PHYSICIAN Family Medicine | DX: C48.2 Malignant neoplasm of peritoneum, unspecified (principal) | CPT/HCPCS: 94727; 94729; 94010 ==

== ENCOUNTER 2024-04-12 08:56 | Outpatient (RCR) | payer MEDICARE, OTHER, SELFPAY ==
[2024-04-12 09:01] LABS: % Basophils 0.3 % (0-2); % Eosinophils 1.6 % (0-6); % Immature Granulocytes 1.4 % (0-0.5); % Lymphocytes 6.9 % (20.5-51.1); % Monocytes 6.8 % (1.7-9.3); Absolute Basophils 0.1 10^3/uL (0-0.2); Absolute Eosinophils 0.2 10^3/uL (0-0.7); Absolute Immature Granulocytes 0.2 10^3/uL (0-0.05); Absolute Neutrophils 12.4 10^3/uL (1.4-6.5); Hematocrit 26.3 % (37.0-47.0); Hemoglobin 8.9 g/dL (12.0-16.0); Mean Corp Hgb Conc. 33.8 g/dL (33.0-37.0); Mean Corpuscular Hgb 34.4 pg (27.0-31.0); Mean Corpuscular Volume 101.5 fL (81.0-99.0); Mean Platelet Volume 9.7 fL (7.4-10.4); Platelet Count 251 10^3/uL (130-400); Red Blood Cell Count 2.59 10^6/uL (4.20-5.40); Red Cell Dist. Width 14.8 % (11.5-14.5)
[2024-04-12 09:52] LABS: ALT (SGPT) 20 U/L (0-35); AST (SGOT) 23 U/L (14-36); Albumin 3.6 g/dl (3.5-5.0); Alkaline Phosphatase 171 U/L (38-126); Blood Urea Nitrogen 33 mg/dl (7-17); Calcium 9.4 mg/dl (8.4-10.2); Carbon Dioxide 18 mmol/L (22-30); Chloride 111 mmol/L (98-107); Glucose 143 mg/dl (70-99); Potassium 4.8 mmol/L (3.5-5.1); Sodium 141 mmol/L (135-145); Total Bilirubin 0.4 mg/dl (0.2-1.3); Total Protein 5.8 g/dl (6.3-8.2); eGFR 38.51
== END 2024-05-09 23:59 | disposition home or self-care (01) ==
LOC: OID 08:56
PROVIDERS: ATTENDING PHYSICIAN Internal Medicine Hematology & Oncology
DX: C48.2 Malignant neoplasm of peritoneum, unspecified (principal)
CPT/HCPCS: 80053; 85025

== ENCOUNTER → 2024-04-21 13:48 | Outpatient (REF) | payer MEDICARE, OTHER, SELFPAY | LOC: RCS 13:48 | PROVIDERS: ATTENDING PHYSICIAN Internal Medicine; FAMILY PHYSICIAN Family Medicine; REFERRING PHYSICIAN Internal Medicine Hematology & Oncology | DX: I31.39 Other pericardial effusion (noninflammatory) (principal); T45.1X5D Adverse effect of antineoplastic and immunosuppressive drugs, subsequent encounter | CPT/HCPCS: 93306; 93356 ==

== ENCOUNTER → 2024-04-21 15:59 | Outpatient (REF) | payer MEDICARE, OTHER, SELFPAY ==
[2024-04-21 12:31] LABS: ALT (SGPT) 13 U/L (0-35); AST (SGOT) 19 U/L (14-36); Albumin 3.7 g/dl (3.5-5.0); Alkaline Phosphatase 281 U/L (38-126); Blood Urea Nitrogen 37 mg/dl (7-17); Calcium 8.9 mg/dl (8.4-10.2); Carbon Dioxide 18 mmol/L (22-30); Chloride 107 mmol/L (98-107); Glucose 159 mg/dl (70-99); Potassium 5.2 mmol/L (3.5-5.1); Sodium 138 mmol/L (135-145); Total Bilirubin 0.5 mg/dl (0.2-1.3); eGFR 32.81
[2024-04-21 14:36] LABS: % Basophils 0.1 % (0-2); % Eosinophils 0.5 % (0-6); % Immature Granulocytes 5.7 % (0-0.5); % Lymphocytes 2.3 % (20.5-51.1); % Monocytes 3.8 % (1.7-9.3); % Neutrophils 87.6 % (42.2-75.2); Absolute Eosinophils 0.2 10^3/uL (0-0.7); Absolute Immature Granulocytes 2.4 10^3/uL (0-0.05); Absolute Monocytes 1.6 10^3/uL (0.1-0.6); Absolute Neutrophils 36.9 10^3/uL (1.4-6.5); Hematocrit 27.8 % (37.0-47.0); Hemoglobin 9.3 g/dL (12.0-16.0); Mean Corp Hgb Conc. 33.5 g/dL (33.0-37.0); Mean Corpuscular Hgb 34.6 pg (27.0-31.0); Mean Corpuscular Volume 103.3 fL (81.0-99.0); Mean Platelet Volume 10.3 fL (7.4-10.4); Nucleated Red Blood Cells % 0.4 %; Platelet Count 245 10^3/uL (130-400); Red Blood Cell Count 2.69 10^6/uL (4.20-5.40); White Blood Cell Count 42.1 10^3/uL (4.8-10.8)
== END ==
LOC: OIDL 15:59
PROVIDERS: ATTENDING PHYSICIAN Internal Medicine Hematology & Oncology
DX: C48.2 Malignant neoplasm of peritoneum, unspecified (principal)
CPT/HCPCS: 80053; 83735; 85025

== ENCOUNTER → 2024-04-26 10:30 | Outpatient (REF) | payer MEDICARE, OTHER, SELFPAY | LOC: RAD 10:30 | PROVIDERS: ATTENDING PHYSICIAN Internal Medicine Hematology & Oncology; FAMILY PHYSICIAN Family Medicine; OTHER PHYSICIAN Internal Medicine | DX: C48.2 Malignant neoplasm of peritoneum, unspecified (principal); D64.81 Anemia due to antineoplastic chemotherapy | CPT/HCPCS: 71260; 74177; Q9967 ==

== ENCOUNTER → 2024-05-02 16:18 | Outpatient (REF) | payer MEDICARE, OTHER, SELFPAY ==
[2024-05-02 14:46] LABS: % Basophils 0.7 % (0-2); % Eosinophils 1.2 % (0-6); % Immature Granulocytes 1.1 % (0-0.5); Absolute Basophils 0.1 10^3/uL (0-0.2); Absolute Eosinophils 0.2 10^3/uL (0-0.7); Absolute Immature Granulocytes 0.2 10^3/uL (0-0.05); Absolute Lymphocytes 1.1 10^3/uL (1.2-3.4); Absolute Monocytes 1.3 10^3/uL (0.1-0.6); Absolute Neutrophils 15.2 10^3/uL (1.4-6.5); Hematocrit 34.2 % (37.0-47.0); Hemoglobin 11.4 g/dL (12.0-16.0); Mean Corp Hgb Conc. 33.3 g/dL (33.0-37.0); Mean Corpuscular Hgb 33.3 pg (27.0-31.0); Mean Platelet Volume 9.8 fL (7.4-10.4); Nucleated Red Blood Cells % 0 %; Platelet Count 321 10^3/uL (130-400); Red Blood Cell Count 3.42 10^6/uL (4.20-5.40); Red Cell Dist. Width 16.2 % (11.5-14.5); White Blood Cell Count 18.1 10^3/uL (4.8-10.8)
[2024-05-02 15:05] LABS: ALT (SGPT) 17 U/L (0-35); AST (SGOT) 23 U/L (14-36); Albumin 3.9 g/dl (3.5-5.0); Alkaline Phosphatase 189 U/L (38-126); Blood Urea Nitrogen 27 mg/dl (7-17); Calcium 9.4 mg/dl (8.4-10.2); Carbon Dioxide 16 mmol/L (22-30); Chloride 107 mmol/L (98-107); Glucose 86 mg/dl (70-99); Potassium 5.9 mmol/L (3.5-5.1); Sodium 137 mmol/L (135-145); Total Bilirubin 0.4 mg/dl (0.2-1.3); Total Protein 6.2 g/dl (6.3-8.2); eGFR 42.09
[2024-05-02 19:45] LABS: CA 125 39.8 U/mL (0-35)
== END ==
LOC: OIDL 16:18
PROVIDERS: ATTENDING PHYSICIAN Internal Medicine Hematology & Oncology
DX: C48.2 Malignant neoplasm of peritoneum, unspecified (principal)
CPT/HCPCS: 80053; 85025; 86304

== ENCOUNTER → 2024-05-23 10:23 | Outpatient (REF) | payer MEDICARE, OTHER, SELFPAY ==
[2024-05-23 11:34] LABS: % Basophils 0.6 % (0-2); % Eosinophils 1.7 % (0-6); % Immature Granulocytes 1.2 % (0-0.5); % Lymphocytes 5.4 % (20.5-51.1); % Monocytes 7.1 % (1.7-9.3); Absolute Basophils 0.1 10^3/uL (0-0.2); Absolute Eosinophils 0.3 10^3/uL (0-0.7); Absolute Immature Granulocytes 0.2 10^3/uL (0-0.05); Absolute Lymphocytes 0.9 10^3/uL (1.2-3.4); Absolute Monocytes 1.1 10^3/uL (0.1-0.6); Absolute Neutrophils 13.5 10^3/uL (1.4-6.5); Hematocrit 32.8 % (37.0-47.0); Hemoglobin 11.2 g/dL (12.0-16.0); Mean Corp Hgb Conc. 34.1 g/dL (33.0-37.0); Mean Corpuscular Volume 99.7 fL (81.0-99.0); Mean Platelet Volume 9.7 fL (7.4-10.4); Nucleated Red Blood Cells % 0 %; Platelet Count 337 10^3/uL (130-400); Red Blood Cell Count 3.29 10^6/uL (4.20-5.40); Red Cell Dist. Width 14.1 % (11.5-14.5)
[2024-05-23 12:09] LABS: ALT (SGPT) 16 U/L (0-35); AST (SGOT) 19 U/L (14-36); Albumin 3.6 g/dl (3.5-5.0); Alkaline Phosphatase 187 U/L (38-126); Blood Urea Nitrogen 23 mg/dl (7-17); Calcium 9.3 mg/dl (8.4-10.2); Carbon Dioxide 19 mmol/L (22-30); Chloride 109 mmol/L (98-107); Glucose 144 mg/dl (70-99); Potassium 4.4 mmol/L (3.5-5.1); Sodium 143 mmol/L (135-145); Total Bilirubin 0.2 mg/dl (0.2-1.3); eGFR 46.33
== END ==
LOC: OIDL 10:23
PROVIDERS: ATTENDING PHYSICIAN Internal Medicine Hematology & Oncology
DX: C48.2 Malignant neoplasm of peritoneum, unspecified (principal)
CPT/HCPCS: 80053; 85025

== ENCOUNTER → 2024-06-14 09:55 | Outpatient (REF) | payer MEDICARE, OTHER, SELFPAY ==
[2024-06-14 09:56] LABS: % Basophils 0.3 % (0-2); % Eosinophils 1.8 % (0-6); % Immature Granulocytes 0.8 % (0-0.5); % Lymphocytes 8.8 % (20.5-51.1); % Monocytes 7.2 % (1.7-9.3); % Neutrophils 81.1 % (42.2-75.2); Absolute Eosinophils 0.2 10^3/uL (0-0.7); Absolute Immature Granulocytes 0.1 10^3/uL (0-0.05); Absolute Lymphocytes 0.8 10^3/uL (1.2-3.4); Absolute Monocytes 0.7 10^3/uL (0.1-0.6); Absolute Neutrophils 7.5 10^3/uL (1.4-6.5); Hematocrit 31.9 % (37.0-47.0); Hemoglobin 10.7 g/dL (12.0-16.0); Mean Corp Hgb Conc. 33.5 g/dL (33.0-37.0); Mean Corpuscular Hgb 32.7 pg (27.0-31.0); Mean Corpuscular Volume 97.6 fL (81.0-99.0); Mean Platelet Volume 9.8 fL (7.4-10.4); Platelet Count 216 10^3/uL (130-400); Red Blood Cell Count 3.27 10^6/uL (4.20-5.40); Red Cell Dist. Width 14.4 % (11.5-14.5); White Blood Cell Count 9.3 10^3/uL (4.8-10.8)
[2024-06-14 12:16] LABS: ALT (SGPT) 17 U/L (0-35); AST (SGOT) 22 U/L (14-36); Albumin 3.5 g/dl (3.5-5.0); Alkaline Phosphatase 160 U/L (38-126); Blood Urea Nitrogen 23 mg/dl (7-17); Carbon Dioxide 22 mmol/L (22-30); Chloride 107 mmol/L (98-107); Glucose 211 mg/dl (70-99); Sodium 139 mmol/L (135-145); Total Bilirubin 0.2 mg/dl (0.2-1.3); Total Protein 5.8 g/dl (6.3-8.2); eGFR 46.33
== END ==
LOC: OIDL 09:55
PROVIDERS: ATTENDING PHYSICIAN Nurse Practitioner Adult Health
DX: C48.2 Malignant neoplasm of peritoneum, unspecified (principal); D64.81 Anemia due to antineoplastic chemotherapy
CPT/HCPCS: 80053; 85025

== ENCOUNTER → 2024-06-15 15:50 | Outpatient (REF) | payer MEDICARE, OTHER, SELFPAY ==
[2024-06-15 14:05] LABS: Blood Urea Nitrogen 27 mg/dl (7-17); Iron 80 ug/dl (37-170)
[2024-06-15 14:14] LABS: Percent Saturation 29 % (20-50); Total Iron Binding Capacity 270 ug/dl (265-497)
== END ==
LOC: OIDL 15:50
PROVIDERS: ATTENDING PHYSICIAN Internal Medicine Hematology & Oncology
DX: C48.2 Malignant neoplasm of peritoneum, unspecified (principal); D64.81 Anemia due to antineoplastic chemotherapy
CPT/HCPCS: 82565; 82728; 83540; 83550; 84520; 86304

== ENCOUNTER → 2024-07-05 16:29 | Outpatient (REF) | payer MEDICARE, OTHER, SELFPAY ==
[2024-07-05 11:22] LABS: % Basophils 0.3 % (0-2); % Eosinophils 1.5 % (0-6); % Immature Granulocytes 0.8 % (0-0.5); % Lymphocytes 6.8 % (20.5-51.1); % Monocytes 7.6 % (1.7-9.3); Absolute Eosinophils 0.2 10^3/uL (0-0.7); Absolute Immature Granulocytes 0.1 10^3/uL (0-0.05); Absolute Lymphocytes 0.8 10^3/uL (1.2-3.4); Absolute Monocytes 0.9 10^3/uL (0.1-0.6); Absolute Neutrophils 10.2 10^3/uL (1.4-6.5); Hematocrit 33.5 % (37.0-47.0); Hemoglobin 11.1 g/dL (12.0-16.0); Mean Corp Hgb Conc. 33.1 g/dL (33.0-37.0); Mean Corpuscular Hgb 32.6 pg (27.0-31.0); Mean Corpuscular Volume 98.5 fL (81.0-99.0); Mean Platelet Volume 10.2 fL (7.4-10.4); Platelet Count 234 10^3/uL (130-400); Red Cell Dist. Width 15.2 % (11.5-14.5); White Blood Cell Count 12.3 10^3/uL (4.8-10.8)
[2024-07-05 12:22] LABS: ALT (SGPT) 19 U/L (0-35); AST (SGOT) 23 U/L (14-36); Albumin 3.8 g/dl (3.5-5.0); Alkaline Phosphatase 170 U/L (38-126); Blood Urea Nitrogen 25 mg/dl (7-17); Calcium 8.8 mg/dl (8.4-10.2); Carbon Dioxide 21 mmol/L (22-30); Chloride 108 mmol/L (98-107); Glucose 109 mg/dl (70-99); Potassium 4.6 mmol/L (3.5-5.1); Sodium 140 mmol/L (135-145); Total Bilirubin 0.4 mg/dl (0.2-1.3); Total Protein 6.2 g/dl (6.3-8.2); eGFR 42.09
== END ==
LOC: OIDL 16:29
PROVIDERS: ATTENDING PHYSICIAN Internal Medicine Hematology & Oncology
DX: C48.2 Malignant neoplasm of peritoneum, unspecified (principal); D64.81 Anemia due to antineoplastic chemotherapy
CPT/HCPCS: 80053; 85025

== ENCOUNTER → 2024-07-21 13:46 | Outpatient (REF) | payer MEDICARE, OTHER, SELFPAY | LOC: RCS 13:46 | PROVIDERS: ATTENDING PHYSICIAN Internal Medicine; FAMILY PHYSICIAN Family Medicine; REFERRING PHYSICIAN Internal Medicine Hematology & Oncology | DX: I31.39 Other pericardial effusion (noninflammatory) (principal); T45.1X5D Adverse effect of antineoplastic and immunosuppressive drugs, subsequent encounter | CPT/HCPCS: 93306; 93356 ==

== ENCOUNTER → 2024-07-26 11:37 | Outpatient (REF) | payer MEDICARE, OTHER, SELFPAY ==
[2024-07-26 09:54] LABS: % Basophils 0.3 % (0-2); % Eosinophils 1.3 % (0-6); % Immature Granulocytes 1.2 % (0-0.5); % Lymphocytes 7.2 % (20.5-51.1); Absolute Eosinophils 0.2 10^3/uL (0-0.7); Absolute Immature Granulocytes 0.2 10^3/uL (0-0.05); Absolute Monocytes 0.8 10^3/uL (0.1-0.6); Absolute Neutrophils 11.3 10^3/uL (1.4-6.5); Hematocrit 33.8 % (37.0-47.0); Mean Corp Hgb Conc. 32.5 g/dL (33.0-37.0); Mean Corpuscular Hgb 32.1 pg (27.0-31.0); Mean Corpuscular Volume 98.5 fL (81.0-99.0); Mean Platelet Volume 9.9 fL (7.4-10.4); Platelet Count 234 10^3/uL (130-400); Red Blood Cell Count 3.43 10^6/uL (4.20-5.40); Red Cell Dist. Width 15.5 % (11.5-14.5); White Blood Cell Count 13.5 10^3/uL (4.8-10.8)
[2024-07-26 10:55] LABS: ALT (SGPT) 21 U/L (0-35); AST (SGOT) 25 U/L (14-36); Albumin 3.7 g/dl (3.5-5.0); Alkaline Phosphatase 200 U/L (38-126); Blood Urea Nitrogen 26 mg/dl (7-17); Calcium 8.9 mg/dl (8.4-10.2); Carbon Dioxide 20 mmol/L (22-30); Chloride 109 mmol/L (98-107); Glucose 139 mg/dl (70-99); Potassium 4.1 mmol/L (3.5-5.1); Sodium 141 mmol/L (135-145); Total Bilirubin 0.3 mg/dl (0.2-1.3); Total Protein 6.1 g/dl (6.3-8.2); eGFR 46.33
[2024-07-26 11:14] LABS: CA 125 46.5 U/mL (0-35)
== END ==
LOC: OIDL 11:37
PROVIDERS: ATTENDING PHYSICIAN Nurse Practitioner Adult Health
DX: C48.2 Malignant neoplasm of peritoneum, unspecified (principal)
CPT/HCPCS: 80053; 85025; 86304

== ENCOUNTER → 2024-08-11 11:30 | Outpatient (REF) | payer MEDICARE, OTHER, SELFPAY | LOC: RAD 11:30 | PROVIDERS: ATTENDING PHYSICIAN Internal Medicine Hematology & Oncology; FAMILY PHYSICIAN Family Medicine | DX: C48.2 Malignant neoplasm of peritoneum, unspecified (principal); D64.81 Anemia due to antineoplastic chemotherapy | CPT/HCPCS: 71260; 74177; Q9967 ==

== ENCOUNTER → 2024-08-16 16:07 | Outpatient (REF) | payer MEDICARE, OTHER, SELFPAY ==
[2024-08-16 12:15] LABS: % Basophils 0.2 % (0-2); % Eosinophils 0.8 % (0-6); % Immature Granulocytes 1.5 % (0-0.5); % Lymphocytes 6.8 % (20.5-51.1); % Monocytes 7.2 % (1.7-9.3); % Neutrophils 83.5 % (42.2-75.2); Absolute Eosinophils 0.2 10^3/uL (0-0.7); Absolute Immature Granulocytes 0.3 10^3/uL (0-0.05); Absolute Lymphocytes 1.2 10^3/uL (1.2-3.4); Absolute Monocytes 1.3 10^3/uL (0.1-0.6); Absolute Neutrophils 15.1 10^3/uL (1.4-6.5); Hematocrit 34.3 % (37.0-47.0); Hemoglobin 11.2 g/dL (12.0-16.0); Mean Corp Hgb Conc. 32.7 g/dL (33.0-37.0); Mean Corpuscular Hgb 32.1 pg (27.0-31.0); Mean Corpuscular Volume 98.3 fL (81.0-99.0); Mean Platelet Volume 9.9 fL (7.4-10.4); Platelet Count 233 10^3/uL (130-400); Red Blood Cell Count 3.49 10^6/uL (4.20-5.40); Red Cell Dist. Width 16.3 % (11.5-14.5)
[2024-08-16 14:38] LABS: ALT (SGPT) 19 U/L (0-35); AST (SGOT) 24 U/L (14-36); Albumin 3.8 g/dl (3.5-5.0); Alkaline Phosphatase 244 U/L (38-126); Blood Urea Nitrogen 24 mg/dl (7-17); Carbon Dioxide 22 mmol/L (22-30); Chloride 107 mmol/L (98-107); Glucose 70 mg/dl (70-99); Potassium 4.7 mmol/L (3.5-5.1); Sodium 137 mmol/L (135-145); Total Bilirubin 0.4 mg/dl (0.2-1.3); Total Protein 6.2 g/dl (6.3-8.2); eGFR 46.33
[2024-08-16 15:09] LABS: CA 125 44.2 U/mL (0-35)
== END ==
LOC: OIDL 16:07
PROVIDERS: ATTENDING PHYSICIAN Nurse Practitioner Adult Health
DX: C48.2 Malignant neoplasm of peritoneum, unspecified (principal)
CPT/HCPCS: 80053; 85025; 86304

== ENCOUNTER → 2024-08-25 13:47 | Outpatient (REF) | payer MEDICARE, OTHER, SELFPAY | LOC: RCS 13:47 | PROVIDERS: ATTENDING PHYSICIAN Internal Medicine; FAMILY PHYSICIAN Family Medicine; REFERRING PHYSICIAN Internal Medicine Hematology & Oncology | DX: I31.39 Other pericardial effusion (noninflammatory) (principal) | CPT/HCPCS: 93308; 93321; 93325 ==

== ENCOUNTER → 2024-09-05 12:31 | Outpatient (REF) | payer MEDICARE, OTHER, SELFPAY ==
[2024-09-05 11:07] LABS: % Basophils 0.3 % (0-2); % Eosinophils 1.2 % (0-6); % Immature Granulocytes 0.7 % (0-0.5); % Lymphocytes 6.9 % (20.5-51.1); % Monocytes 6.4 % (1.7-9.3); % Neutrophils 84.5 % (42.2-75.2); Absolute Eosinophils 0.2 10^3/uL (0-0.7); Absolute Immature Granulocytes 0.1 10^3/uL (0-0.05); Absolute Monocytes 0.9 10^3/uL (0.1-0.6); Absolute Neutrophils 11.9 10^3/uL (1.4-6.5); Hematocrit 31.9 % (37.0-47.0); Hemoglobin 10.6 g/dL (12.0-16.0); Mean Corp Hgb Conc. 33.2 g/dL (33.0-37.0); Mean Corpuscular Hgb 32.7 pg (27.0-31.0); Mean Corpuscular Volume 98.5 fL (81.0-99.0); Mean Platelet Volume 9.9 fL (7.4-10.4); Platelet Count 232 10^3/uL (130-400); Red Blood Cell Count 3.24 10^6/uL (4.20-5.40); Red Cell Dist. Width 15.7 % (11.5-14.5); White Blood Cell Count 14.1 10^3/uL (4.8-10.8)
[2024-09-05 11:45] LABS: ALT (SGPT) 20 U/L (0-35); AST (SGOT) 26 U/L (14-36); Albumin 3.6 g/dl (3.5-5.0); Alkaline Phosphatase 197 U/L (38-126); Blood Urea Nitrogen 28 mg/dl (7-17); Calcium 8.8 mg/dl (8.4-10.2); Carbon Dioxide 21 mmol/L (22-30); Chloride 109 mmol/L (98-107); Glucose 122 mg/dl (70-99); Potassium 4.2 mmol/L (3.5-5.1); Sodium 139 mmol/L (135-145); Total Bilirubin 0.2 mg/dl (0.2-1.3); Total Protein 5.9 g/dl (6.3-8.2); eGFR 38.51
== END ==
LOC: OIDL 12:31
PROVIDERS: ATTENDING PHYSICIAN Internal Medicine Hematology & Oncology
DX: C48.2 Malignant neoplasm of peritoneum, unspecified (principal)
CPT/HCPCS: 80053; 85025

== ENCOUNTER → 2024-09-26 10:58 | Outpatient (REF) | payer MEDICARE, OTHER, SELFPAY ==
[2024-09-26 09:50] LABS: % Basophils 0.3 % (0-2); % Eosinophils 0.9 % (0-6); % Immature Granulocytes 1.6 % (0-0.5); % Lymphocytes 6.4 % (20.5-51.1); % Monocytes 7.1 % (1.7-9.3); % Neutrophils 83.7 % (42.2-75.2); Absolute Basophils 0.1 10^3/uL (0-0.2); Absolute Eosinophils 0.2 10^3/uL (0-0.7); Absolute Immature Granulocytes 0.3 10^3/uL (0-0.05); Absolute Lymphocytes 1.1 10^3/uL (1.2-3.4); Absolute Monocytes 1.2 10^3/uL (0.1-0.6); Absolute Neutrophils 13.6 10^3/uL (1.4-6.5); Hematocrit 32.8 % (37.0-47.0); Hemoglobin 10.8 g/dL (12.0-16.0); Mean Corp Hgb Conc. 32.9 g/dL (33.0-37.0); Mean Corpuscular Hgb 33.2 pg (27.0-31.0); Mean Corpuscular Volume 100.9 fL (81.0-99.0); Mean Platelet Volume 10.7 fL (7.4-10.4); Platelet Count 207 10^3/uL (130-400); Red Blood Cell Count 3.25 10^6/uL (4.20-5.40); Red Cell Dist. Width 15.3 % (11.5-14.5); White Blood Cell Count 16.3 10^3/uL (4.8-10.8)
[2024-09-26 10:56] LABS: ALT (SGPT) 21 U/L (0-35); AST (SGOT) 26 U/L (14-36); Albumin 3.8 g/dl (3.5-5.0); Alkaline Phosphatase 246 U/L (38-126); Blood Urea Nitrogen 27 mg/dl (7-17); Calcium 8.6 mg/dl (8.4-10.2); Carbon Dioxide 18 mmol/L (22-30); Chloride 108 mmol/L (98-107); Glucose 158 mg/dl (70-99); Potassium 4.2 mmol/L (3.5-5.1); Sodium 138 mmol/L (135-145); Total Bilirubin 0.5 mg/dl (0.2-1.3); Total Protein 6.1 g/dl (6.3-8.2); eGFR 38.51
== END ==
LOC: OIDL 10:58
PROVIDERS: ATTENDING PHYSICIAN Internal Medicine Hematology & Oncology
DX: C48.2 Malignant neoplasm of peritoneum, unspecified (principal)
CPT/HCPCS: 80053; 85025

== ENCOUNTER → 2024-10-07 13:43 | Outpatient (REF) | payer MEDICARE, OTHER, SELFPAY | LOC: RAD 13:43 | PROVIDERS: ATTENDING PHYSICIAN Nurse Practitioner Adult Health; FAMILY PHYSICIAN Family Medicine | DX: C48.2 Malignant neoplasm of peritoneum, unspecified (principal); D64.81 Anemia due to antineoplastic chemotherapy | CPT/HCPCS: 74019 ==

== ENCOUNTER → 2024-10-17 11:52 | Outpatient (REF) | payer MEDICARE, OTHER, SELFPAY ==
[2024-10-17 11:24] LABS: % Basophils 0.4 % (0-2); % Eosinophils 0.9 % (0-6); % Immature Granulocytes 1.1 % (0-0.5); % Lymphocytes 6.4 % (20.5-51.1); % Monocytes 6.1 % (1.7-9.3); % Neutrophils 85.1 % (42.2-75.2); Absolute Basophils 0.1 10^3/uL (0-0.2); Absolute Eosinophils 0.1 10^3/uL (0-0.7); Absolute Immature Granulocytes 0.2 10^3/uL (0-0.05); Absolute Lymphocytes 0.9 10^3/uL (1.2-3.4); Absolute Monocytes 0.9 10^3/uL (0.1-0.6); Absolute Neutrophils 11.9 10^3/uL (1.4-6.5); Hematocrit 32.2 % (37.0-47.0); Hemoglobin 10.9 g/dL (12.0-16.0); Mean Corp Hgb Conc. 33.9 g/dL (33.0-37.0); Mean Corpuscular Hgb 33.4 pg (27.0-31.0); Mean Corpuscular Volume 98.8 fL (81.0-99.0); Mean Platelet Volume 10.9 fL (7.4-10.4); Platelet Count 235 10^3/uL (130-400); Red Blood Cell Count 3.26 10^6/uL (4.20-5.40); Red Cell Dist. Width 14.6 % (11.5-14.5)
[2024-10-17 13:05] LABS: ALT (SGPT) 18 U/L (0-35); AST (SGOT) 24 U/L (14-36); Albumin 3.6 g/dl (3.5-5.0); Alkaline Phosphatase 252 U/L (38-126); Blood Urea Nitrogen 26 mg/dl (7-17); Calcium 9.1 mg/dl (8.4-10.2); Carbon Dioxide 20 mmol/L (22-30); Chloride 107 mmol/L (98-107); Glucose 179 mg/dl (70-99); Potassium 4.1 mmol/L (3.5-5.1); Sodium 138 mmol/L (135-145); Total Bilirubin 0.4 mg/dl (0.2-1.3); Total Protein 5.9 g/dl (6.3-8.2); eGFR 42.09
[2024-10-17 18:38] LABS: CA 125 49.2 U/mL (0-35)
== END ==
LOC: OIDL 11:52
PROVIDERS: ATTENDING PHYSICIAN Nurse Practitioner Adult Health
DX: C48.2 Malignant neoplasm of peritoneum, unspecified (principal)
CPT/HCPCS: 80053; 85025; 86304

== ENCOUNTER → 2024-11-07 10:16 | Outpatient (REF) | payer MEDICARE, OTHER, SELFPAY ==
[2024-11-07 10:33] LABS: % Basophils 0.2 % (0-2); % Eosinophils 0.9 % (0-6); % Immature Granulocytes 2.1 % (0-0.5); % Monocytes 6.7 % (1.7-9.3); % Neutrophils 85.1 % (42.2-75.2); Absolute Basophils 0.1 10^3/uL (0-0.2); Absolute Eosinophils 0.2 10^3/uL (0-0.7); Absolute Immature Granulocytes 0.4 10^3/uL (0-0.05); Absolute Monocytes 1.4 10^3/uL (0.1-0.6); Absolute Neutrophils 17.3 10^3/uL (1.4-6.5); Hematocrit 32.5 % (37.0-47.0); Hemoglobin 10.9 g/dL (12.0-16.0); Mean Corp Hgb Conc. 33.5 g/dL (33.0-37.0); Mean Corpuscular Volume 98.5 fL (81.0-99.0); Mean Platelet Volume 10.5 fL (7.4-10.4); Platelet Count 225 10^3/uL (130-400); Red Cell Dist. Width 15.1 % (11.5-14.5); White Blood Cell Count 20.3 10^3/uL (4.8-10.8)
[2024-11-07 10:59] LABS: ALT (SGPT) 39 U/L (0-35); AST (SGOT) 40 U/L (14-36); Albumin 3.6 g/dl (3.5-5.0); Alkaline Phosphatase 270 U/L (38-126); Blood Urea Nitrogen 28 mg/dl (7-17); Calcium 9.2 mg/dl (8.4-10.2); Carbon Dioxide 23 mmol/L (22-30); Chloride 112 mmol/L (98-107); Glucose 145 mg/dl (70-99); Potassium 4.7 mmol/L (3.5-5.1); Sodium 142 mmol/L (135-145); Total Bilirubin 0.3 mg/dl (0.2-1.3); Total Protein 5.8 g/dl (6.3-8.2); eGFR 42.09
[2024-11-07 20:28] LABS: CA 125 39.2 U/mL (0-35)
== END ==
LOC: OIDL 10:16
PROVIDERS: ATTENDING PHYSICIAN Internal Medicine Hematology & Oncology
DX: C48.2 Malignant neoplasm of peritoneum, unspecified (principal)
CPT/HCPCS: 80053; 85025; 86304

== ENCOUNTER → 2024-11-24 12:48 | Outpatient (REF) | payer MEDICARE, OTHER, SELFPAY | LOC: RSP 12:48 | PROVIDERS: ATTENDING PHYSICIAN Nurse Practitioner Adult Health; FAMILY PHYSICIAN Family Medicine | DX: C48.2 Malignant neoplasm of peritoneum, unspecified (principal); R94.2 Abnormal results of pulmonary function studies; D64.81 Anemia due to antineoplastic chemotherapy | CPT/HCPCS: 94727; 94729; 88738; 94010 ==

== ENCOUNTER → 2024-11-25 13:36 | Outpatient (REF) | payer MEDICARE, OTHER, SELFPAY | LOC: RCS 13:36 | PROVIDERS: ATTENDING PHYSICIAN Internal Medicine; FAMILY PHYSICIAN Family Medicine; OTHER PHYSICIAN Internal Medicine Hematology & Oncology | DX: I31.39 Other pericardial effusion (noninflammatory) (principal); C56.9 Malignant neoplasm of unspecified ovary; T45.1X5D Adverse effect of antineoplastic and immunosuppressive drugs, subsequent encounter | CPT/HCPCS: 93306; 93356 ==

== ENCOUNTER → 2024-11-30 15:06 | Outpatient (REF) | payer MEDICARE, OTHER, SELFPAY | LOC: RAD 15:06 | PROVIDERS: ATTENDING PHYSICIAN Family Medicine; FAMILY PHYSICIAN Family Medicine; OTHER PHYSICIAN Internal Medicine Hematology & Oncology | DX: J40 Bronchitis, not specified as acute or chronic (principal) | CPT/HCPCS: 71046 ==

== ENCOUNTER → 2024-12-06 14:48 | Outpatient (REF) | payer MEDICARE, OTHER, SELFPAY ==
[2024-12-06 11:27] LABS: % Basophils 0.1 % (0-2); % Eosinophils 0.1 % (0-6); % Immature Granulocytes 0.6 % (0-0.5); % Lymphocytes 3.3 % (20.5-51.1); % Monocytes 4.3 % (1.7-9.3); % Neutrophils 91.6 % (42.2-75.2); Absolute Immature Granulocytes 0.1 10^3/uL (0-0.05); Absolute Lymphocytes 0.5 10^3/uL (1.2-3.4); Absolute Monocytes 0.6 10^3/uL (0.1-0.6); Absolute Neutrophils 12.9 10^3/uL (1.4-6.5); Hematocrit 31.3 % (37.0-47.0); Hemoglobin 10.6 g/dL (12.0-16.0); Mean Corp Hgb Conc. 33.9 g/dL (33.0-37.0); Mean Corpuscular Hgb 32.6 pg (27.0-31.0); Mean Corpuscular Volume 96.3 fL (81.0-99.0); Platelet Count 338 10^3/uL (130-400); Red Blood Cell Count 3.25 10^6/uL (4.20-5.40); Red Cell Dist. Width 14.5 % (11.5-14.5); White Blood Cell Count 14.1 10^3/uL (4.8-10.8)
[2024-12-06 12:18] LABS: ALT (SGPT) 23 U/L (0-35); AST (SGOT) 20 U/L (14-36); Albumin 3.3 g/dl (3.5-5.0); Alkaline Phosphatase 132 U/L (38-126); Blood Urea Nitrogen 25 mg/dl (7-17); Calcium 9.2 mg/dl (8.4-10.2); Carbon Dioxide 21 mmol/L (22-30); Chloride 111 mmol/L (98-107); Glucose 167 mg/dl (70-99); Potassium 4.1 mmol/L (3.5-5.1); Sodium 139 mmol/L (135-145); Total Bilirubin 0.6 mg/dl (0.2-1.3); Total Protein 5.5 g/dl (6.3-8.2); eGFR 46.33
[2024-12-06 14:11] LABS: CA 125 31.4 U/mL (0-35)
== END ==
LOC: OIDL 14:48
PROVIDERS: ATTENDING PHYSICIAN Nurse Practitioner Adult Health
DX: C48.2 Malignant neoplasm of peritoneum, unspecified (principal); D64.81 Anemia due to antineoplastic chemotherapy; R94.2 Abnormal results of pulmonary function studies
CPT/HCPCS: 80053; 85025; 86304

== ENCOUNTER → 2024-12-27 09:09 | Outpatient (REF) | payer MEDICARE, OTHER, SELFPAY ==
[2024-12-27 09:14] LABS: % Basophils 0.4 % (0-2); % Eosinophils 1.9 % (0-6); % Immature Granulocytes 1.2 % (0-0.5); % Lymphocytes 5.6 % (20.5-51.1); % Monocytes 6.5 % (1.7-9.3); % Neutrophils 84.4 % (42.2-75.2); Absolute Basophils 0.1 10^3/uL (0-0.2); Absolute Eosinophils 0.3 10^3/uL (0-0.7); Absolute Immature Granulocytes 0.2 10^3/uL (0-0.05); Absolute Lymphocytes 0.8 10^3/uL (1.2-3.4); Absolute Monocytes 0.9 10^3/uL (0.1-0.6); Absolute Neutrophils 11.7 10^3/uL (1.4-6.5); Hematocrit 31.6 % (37.0-47.0); Hemoglobin 10.6 g/dL (12.0-16.0); Mean Corp Hgb Conc. 33.5 g/dL (33.0-37.0); Mean Corpuscular Hgb 33.2 pg (27.0-31.0); Mean Corpuscular Volume 99.1 fL (81.0-99.0); Platelet Count 205 10^3/uL (130-400); Red Blood Cell Count 3.19 10^6/uL (4.20-5.40); Red Cell Dist. Width 15.6 % (11.5-14.5); White Blood Cell Count 13.8 10^3/uL (4.8-10.8)
[2024-12-27 09:50] LABS: ALT (SGPT) 26 U/L (0-35); AST (SGOT) 28 U/L (14-36); Albumin 3.6 g/dl (3.5-5.0); Alkaline Phosphatase 211 U/L (38-126); Blood Urea Nitrogen 20 mg/dl (7-17); Calcium 8.8 mg/dl (8.4-10.2); Carbon Dioxide 22 mmol/L (22-30); Chloride 113 mmol/L (98-107); Glucose 185 mg/dl (70-99); Potassium 4.2 mmol/L (3.5-5.1); Sodium 140 mmol/L (135-145); Total Bilirubin 0.5 mg/dl (0.2-1.3); Total Protein 5.9 g/dl (6.3-8.2); eGFR 42.09
[2024-12-27 10:21] LABS: CA 125 35.4 U/mL (0-35)
== END ==
LOC: OIDL 09:09
PROVIDERS: ATTENDING PHYSICIAN Internal Medicine Hematology & Oncology
DX: D64.81 Anemia due to antineoplastic chemotherapy (principal); C48.2 Malignant neoplasm of peritoneum, unspecified
CPT/HCPCS: 80053; 85025; 86304

== ENCOUNTER → 2025-01-17 09:58 | Outpatient (REF) | payer MEDICARE, OTHER, SELFPAY ==
[2025-01-17 10:04] LABS: % Basophils 0.6 % (0-2); % Immature Granulocytes 0.6 % (0-0.5); % Lymphocytes 8.1 % (20.5-51.1); % Monocytes 5.4 % (1.7-9.3); % Neutrophils 84.3 % (42.2-75.2); Absolute Basophils 0.1 10^3/uL (0-0.2); Absolute Eosinophils 0.1 10^3/uL (0-0.7); Absolute Immature Granulocytes 0.1 10^3/uL (0-0.05); Absolute Lymphocytes 0.9 10^3/uL (1.2-3.4); Absolute Monocytes 0.6 10^3/uL (0.1-0.6); Absolute Neutrophils 8.9 10^3/uL (1.4-6.5); Hematocrit 32.2 % (37.0-47.0); Hemoglobin 10.8 g/dL (12.0-16.0); Mean Corp Hgb Conc. 33.5 g/dL (33.0-37.0); Mean Corpuscular Hgb 33.4 pg (27.0-31.0); Mean Corpuscular Volume 99.7 fL (81.0-99.0); Platelet Count 229 10^3/uL (130-400); Red Blood Cell Count 3.23 10^6/uL (4.20-5.40); Red Cell Dist. Width 15.7 % (11.5-14.5); White Blood Cell Count 10.5 10^3/uL (4.8-10.8)
[2025-01-17 11:07] LABS: ALT (SGPT) 21 U/L (0-35); AST (SGOT) 24 U/L (14-36); Albumin 3.7 g/dl (3.5-5.0); Alkaline Phosphatase 232 U/L (38-126); Blood Urea Nitrogen 35 mg/dl (7-17); Carbon Dioxide 19 mmol/L (22-30); Chloride 114 mmol/L (98-107); Glucose 169 mg/dl (70-99); Potassium 4.6 mmol/L (3.5-5.1); Sodium 139 mmol/L (135-145); Total Bilirubin 0.4 mg/dl (0.2-1.3); Total Protein 5.9 g/dl (6.3-8.2); eGFR 38.27
== END ==
LOC: OIDL 09:58
PROVIDERS: ATTENDING PHYSICIAN Nurse Practitioner Adult Health
DX: C48.2 Malignant neoplasm of peritoneum, unspecified (principal); D64.81 Anemia due to antineoplastic chemotherapy; R94.2 Abnormal results of pulmonary function studies
CPT/HCPCS: 80053; 85025; 86304

== ENCOUNTER → 2025-02-07 10:50 | Outpatient (REF) | payer MEDICARE, OTHER, SELFPAY ==
[2025-02-07 11:00] LABS: Hematocrit 32.1 % (37.0-47.0); Hemoglobin 10.7 g/dL (12.0-16.0); Mean Corp Hgb Conc. 33.3 g/dL (33.0-37.0); Mean Corpuscular Volume 100.0 fL (81.0-99.0); Platelet Count 197 10^3/uL (130-400); Red Cell Dist. Width 15.4 % (11.5-14.5)
[2025-02-07 12:16] LABS: ALT (SGPT) 24 U/L (0-35); AST (SGOT) 27 U/L (14-36); Albumin 3.7 g/dl (3.5-5.0); Alkaline Phosphatase 266 U/L (38-126); Blood Urea Nitrogen 27 mg/dl (7-17); Calcium 8.6 mg/dl (8.4-10.2); Carbon Dioxide 19 mmol/L (22-30); Chloride 115 mmol/L (98-107); Glucose 172 mg/dl (70-99); Potassium 4.2 mmol/L (3.5-5.1); Sodium 141 mmol/L (135-145); Total Protein 6.0 g/dl (6.3-8.2); eGFR 41.83
[2025-02-07 13:01] LABS: CA 125 34.8 U/mL (0-35)
== END ==
LOC: OIDL 10:50
PROVIDERS: ATTENDING PHYSICIAN Internal Medicine Hematology & Oncology
DX: C48.2 Malignant neoplasm of peritoneum, unspecified (principal); D64.81 Anemia due to antineoplastic chemotherapy; R94.2 Abnormal results of pulmonary function studies
CPT/HCPCS: 80053; 85025; 86304

== ENCOUNTER → 2025-02-28 10:45 | Outpatient (REF) | payer MEDICARE, OTHER, SELFPAY ==
[2025-02-28 11:33] LABS: Hematocrit 32.0 % (37.0-47.0); Hemoglobin 10.7 g/dL (12.0-16.0); Mean Corp Hgb Conc. 33.4 g/dL (33.0-37.0); Mean Corpuscular Volume 100.6 fL (81.0-99.0); Platelet Count 207 10^3/uL (130-400); Red Cell Dist. Width 14.9 % (11.5-14.5)
[2025-02-28 12:17] LABS: ALT (SGPT) 32 U/L (0-35); AST (SGOT) 30 U/L (14-36); Albumin 3.8 g/dl (3.5-5.0); Alkaline Phosphatase 225 U/L (38-126); Blood Urea Nitrogen 26 mg/dl (7-17); Calcium 9.1 mg/dl (8.4-10.2); Carbon Dioxide 24 mmol/L (22-30); Chloride 111 mmol/L (98-107); Glucose 142 mg/dl (70-99); Potassium 4.5 mmol/L (3.5-5.1); Sodium 139 mmol/L (135-145); Total Protein 6.1 g/dl (6.3-8.2); eGFR 46.05
[2025-02-28 13:39] LABS: CA 125 29.4 U/mL (0-35)
== END ==
LOC: OIDL 10:45
PROVIDERS: ATTENDING PHYSICIAN Nurse Practitioner Adult Health
DX: C48.2 Malignant neoplasm of peritoneum, unspecified (principal); D64.81 Anemia due to antineoplastic chemotherapy; R94.2 Abnormal results of pulmonary function studies
CPT/HCPCS: 80053; 85025; 86304

== ENCOUNTER → 2025-03-07 14:01 | Outpatient (REF) | payer MEDICARE, OTHER, SELFPAY | LOC: RCS 14:01 | PROVIDERS: ATTENDING PHYSICIAN Internal Medicine; FAMILY PHYSICIAN Family Medicine; OTHER PHYSICIAN Internal Medicine Hematology & Oncology | DX: I31.39 Other pericardial effusion (noninflammatory) (principal); C56.9 Malignant neoplasm of unspecified ovary; T45.1X5D Adverse effect of antineoplastic and immunosuppressive drugs, subsequent encounter | CPT/HCPCS: 93306; 93356 ==

== ENCOUNTER → 2025-03-21 15:22 | Outpatient (REF) | payer MEDICARE, OTHER, SELFPAY ==
[2025-03-21 11:08] LABS: Hematocrit 31.6 % (37.0-47.0); Hemoglobin 10.5 g/dL (12.0-16.0); Mean Corp Hgb Conc. 33.2 g/dL (33.0-37.0); Mean Corpuscular Volume 99.7 fL (81.0-99.0); Platelet Count 223 10^3/uL (130-400); Red Cell Dist. Width 14.3 % (11.5-14.5)
[2025-03-21 11:51] LABS: ALT (SGPT) 23 U/L (0-35); AST (SGOT) 24 U/L (14-36); Albumin 3.6 g/dl (3.5-5.0); Alkaline Phosphatase 203 U/L (38-126); Blood Urea Nitrogen 25 mg/dl (7-17); Calcium 8.8 mg/dl (8.4-10.2); Carbon Dioxide 21 mmol/L (22-30); Chloride 110 mmol/L (98-107); Glucose 177 mg/dl (70-99); Potassium 4.0 mmol/L (3.5-5.1); Sodium 136 mmol/L (135-145); Total Protein 5.9 g/dl (6.3-8.2); eGFR 46.05
[2025-03-21 16:02] LABS: CA 125 38.5 U/mL (0-35)
== END ==
LOC: OIDL 15:22
PROVIDERS: ATTENDING PHYSICIAN Nurse Practitioner Adult Health
DX: C48.2 Malignant neoplasm of peritoneum, unspecified (principal); D64.81 Anemia due to antineoplastic chemotherapy; R94.2 Abnormal results of pulmonary function studies
CPT/HCPCS: 80053; 85025; 86304

== ENCOUNTER → 2025-04-11 15:26 | Outpatient (REF) | payer MEDICARE, OTHER, SELFPAY ==
[2025-04-11 12:12] LABS: Hematocrit 33.0 % (37.0-47.0); Hemoglobin 11.0 g/dL (12.0-16.0); Mean Corp Hgb Conc. 33.3 g/dL (33.0-37.0); Mean Corpuscular Volume 99.7 fL (81.0-99.0); Platelet Count 199 10^3/uL (130-400); Red Cell Dist. Width 14.5 % (11.5-14.5)
[2025-04-11 12:49] LABS: ALT (SGPT) 39 U/L (0-35); AST (SGOT) 36 U/L (14-36); Albumin 3.9 g/dl (3.5-5.0); Alkaline Phosphatase 225 U/L (38-126); Blood Urea Nitrogen 24 mg/dl (7-17); Calcium 9.4 mg/dl (8.4-10.2); Carbon Dioxide 22 mmol/L (22-30); Chloride 113 mmol/L (98-107); Glucose 102 mg/dl (70-99); Potassium 4.2 mmol/L (3.5-5.1); Sodium 140 mmol/L (135-145); Total Protein 6.3 g/dl (6.3-8.2); eGFR 41.83
== END ==
LOC: OIDL 15:26
PROVIDERS: ATTENDING PHYSICIAN Internal Medicine Hematology & Oncology
DX: C48.2 Malignant neoplasm of peritoneum, unspecified (principal); D64.81 Anemia due to antineoplastic chemotherapy; R94.2 Abnormal results of pulmonary function studies
CPT/HCPCS: 80053; 85025

== ENCOUNTER → 2025-04-26 10:24 | Outpatient (REF) | payer MEDICARE, OTHER, SELFPAY ==
[2025-04-26 10:37] LABS: Glucose 118 mg/dl (70-99)
== END ==
LOC: PET 10:24
PROVIDERS: ATTENDING PHYSICIAN Internal Medicine Hematology & Oncology
DX: C48.2 Malignant neoplasm of peritoneum, unspecified (principal); D64.81 Anemia due to antineoplastic chemotherapy; R94.2 Abnormal results of pulmonary function studies
CPT/HCPCS: 36415; 82947

== ENCOUNTER → 2025-05-09 10:54 | Outpatient (REF) | payer MEDICARE, OTHER, SELFPAY ==
[2025-05-09 11:07] LABS: Hematocrit 31.9 % (37.0-47.0); Hemoglobin 10.4 g/dL (12.0-16.0); Mean Corp Hgb Conc. 32.6 g/dL (33.0-37.0); Mean Corpuscular Volume 100.9 fL (81.0-99.0); Platelet Count 158 10^3/uL (130-400); Red Cell Dist. Width 14.2 % (11.5-14.5)
[2025-05-09 12:05] LABS: ALT (SGPT) 49 U/L (0-35); AST (SGOT) 39 U/L (14-36); Albumin 3.4 g/dl (3.5-5.0); Alkaline Phosphatase 191 U/L (38-126); Blood Urea Nitrogen 32 mg/dl (7-17); Calcium 8.3 mg/dl (8.4-10.2); Carbon Dioxide 21 mmol/L (22-30); Chloride 112 mmol/L (98-107); Glucose 180 mg/dl (70-99); Potassium 3.7 mmol/L (3.5-5.1); Sodium 138 mmol/L (135-145); Total Protein 5.8 g/dl (6.3-8.2); eGFR 35.23
== END ==
LOC: OIDL 10:54
PROVIDERS: ATTENDING PHYSICIAN Internal Medicine Hematology & Oncology
DX: C48.2 Malignant neoplasm of peritoneum, unspecified (principal); D64.81 Anemia due to antineoplastic chemotherapy; R94.2 Abnormal results of pulmonary function studies
CPT/HCPCS: 80053; 85025

== ENCOUNTER → 2025-06-19 13:45 | Outpatient (REF) | payer MEDICARE, OTHER, SELFPAY | LOC: RCS 13:45 | PROVIDERS: ATTENDING PHYSICIAN Internal Medicine; FAMILY PHYSICIAN Family Medicine; REFERRING PHYSICIAN Internal Medicine Hematology & Oncology | DX: I31.39 Other pericardial effusion (noninflammatory) (principal); C56.9 Malignant neoplasm of unspecified ovary; T45.1X5D Adverse effect of antineoplastic and immunosuppressive drugs, subsequent encounter; I34.0 Nonrheumatic mitral (valve) insufficiency; I36.1 Nonrheumatic tricuspid (valve) insufficiency; C48.2 Malignant neoplasm of peritoneum, unspecified; D64.81 Anemia due to antineoplastic chemotherapy; R94.2 Abnormal results of pulmonary function studies | CPT/HCPCS: 93306; 93356 ==

== ENCOUNTER → 2025-06-26 14:48 | Outpatient (REF) | payer MEDICARE, OTHER, SELFPAY ==
[2025-06-26 16:16] LABS: ALT (SGPT) 23 U/L (0-35); AST (SGOT) 26 U/L (14-36); Albumin 3.9 g/dl (3.5-5.0); Alkaline Phosphatase 227 U/L (38-126); Blood Urea Nitrogen 21 mg/dl (7-17); Calcium 9.1 mg/dl (8.4-10.2); Carbon Dioxide 24 mmol/L (22-30); Chloride 108 mmol/L (98-107); Glucose 99 mg/dl (70-99); Potassium 4.6 mmol/L (3.5-5.1); Sodium 135 mmol/L (135-145); Total Protein 6.4 g/dl (6.3-8.2); eGFR 38.27
[2025-06-26 16:17] LABS: Hematocrit 34.7 % (37.0-47.0); Hemoglobin 11.4 g/dL (12.0-16.0); Mean Corp Hgb Conc. 32.9 g/dL (33.0-37.0); Mean Corpuscular Volume 96.9 fL (81.0-99.0); Nucleated Red Blood Cells % 0 %; Platelet Count 222 10^3/uL (130-400); Red Cell Dist. Width 14.4 % (11.5-14.5)
== END ==
LOC: REG 14:48
PROVIDERS: ATTENDING PHYSICIAN Internal Medicine Hematology & Oncology; FAMILY PHYSICIAN Family Medicine
DX: C48.2 Malignant neoplasm of peritoneum, unspecified (principal); D64.81 Anemia due to antineoplastic chemotherapy; R94.2 Abnormal results of pulmonary function studies
CPT/HCPCS: 36415; 80053; 85025

== ENCOUNTER 2025-07-18 09:14 | Outpatient (RCR) | payer MEDICARE, OTHER, SELFPAY ==
[2025-07-18 09:25] VITALS: BP 123/41
[2025-07-18 09:36] LABS: Hematocrit 32.9 % (37.0-47.0); Hemoglobin 10.9 g/dL (12.0-16.0); Mean Corp Hgb Conc. 33.1 g/dL (33.0-37.0); Mean Corpuscular Volume 100.0 fL (81.0-99.0); Platelet Count 189 10^3/uL (130-400); Red Cell Dist. Width 14.8 % (11.5-14.5)
[2025-07-18 10:37] LABS: ALT (SGPT) 27 U/L (0-35); AST (SGOT) 34 U/L (14-36); Albumin 3.5 g/dl (3.5-5.0); Alkaline Phosphatase 225 U/L (38-126); Blood Urea Nitrogen 28 mg/dl (7-17); Calcium 8.5 mg/dl (8.4-10.2); Carbon Dioxide 21 mmol/L (22-30); Chloride 107 mmol/L (98-107); Glucose 227 mg/dl (70-99); Potassium 4.0 mmol/L (3.5-5.1); Sodium 133 mmol/L (135-145); Total Protein 6.0 g/dl (6.3-8.2); eGFR 38.27
== END 2025-08-09 23:59 | disposition home or self-care (01) ==
LOC: OID 09:14
PROVIDERS: ATTENDING PHYSICIAN Internal Medicine Hematology & Oncology; FAMILY PHYSICIAN Family Medicine
DX: C48.2 Malignant neoplasm of peritoneum, unspecified (principal); D64.81 Anemia due to antineoplastic chemotherapy; R94.2 Abnormal results of pulmonary function studies
CPT/HCPCS: 36591; 80053; 85025; 96523